=== PATIENT | female | born 1945 | race Caucasian/White ===

== ENCOUNTER 2020-11-20 15:17 | Observation (INO) ==
[2020-11-20] MEDS ORDERED: PANTOPRAZOLE SODIUM 40 MG/100 ML PIGGYBACK IV ONE (15:37)
--- NOTE | 2020-11-20 15:50 | ERNOTE ---
GI Bleeding/Rectal Pain ER Date of Service: 11/20/20 Presenting Symptoms: dark/tarry stools Time Seen by Provider: 11/20/20 15:22 Source: patient Exam Limitations: no limitations Immunizations: IMMUNIZATION HX Immunizations Up to Date Yes Allergies/Adverse Reactions: Allergies atorvastatin [From Lipitor] Allergy (Verified 11/20/20 15:51) codeine Allergy (Verified 11/20/20 15:51) erythromycin base [From Erythrocin] Allergy (Verified 11/20/20 15:51) ezetimibe [From Vytorin] Allergy (Verified 11/20/20 15:51) guaifenesin Allergy (Verified 11/20/20 15:51) levofloxacin [From Levaquin] Allergy (Verified 11/20/20 15:51) lisinopril Allergy (Verified 11/20/20 15:51) simvastatin [From Vytorin] Allergy (Verified 11/20/20 15:51) theophylline Allergy (Verified 11/20/20 15:51) Home Medications: HOME MEDICATIONS ALPRAZolam [Xanax] 0.5 mg PO TID PRN 11/20/20 [Last Taken Unknown] Albuterol Sulfate [Albuterol Sulfate 2.5 MG/0.5ML] 1 vial IH Q6H PRN 11/20/20 [Last Taken Unknown] Albuterol Sulfate [Proventil Hfa] 6.7 gm IH prn PRN 11/20/20 [Last Taken Unknown] Aspirin [Aspirin EC] 325 mg PO DAILY 11/20/20 [Last Taken Unknown] Budesonide/Formoterol Fumarate [Symbicort 160-4.5 Mcg Inhaler] 2 puff IH BID 11/20/20 [Last Taken Unknown] Calcium Carbonate [Elemental Calcium] 600 mg PO DAILY 11/20/20 [Last Taken Unknown] Cholecalciferol (Vitamin D3) [Vitamin D3] 1,000 mcg PO DAILY 11/20/20 [Last Taken Unknown] Docusate Sodium [Colace] 100 mg PO BID PRN 11/20/20 [Last Taken Unknown] Ferrous Sulfate 650 mg PO DAILY 11/20/20 [Last Taken Unknown] Furosemide 20 mg PO DAILY 11/20/20 [Last Taken Unknown] Gabapentin 100 mg PO DAILY 11/20/20 [Last Taken Unknown] Losartan Potassium [Cozaar] 50 mg PO DAILY 11/20/20 [Last Taken Unknown] Metoprolol Tartrate 100 mg PO BID 11/20/20 [Last Taken Unknown] Montelukast Sodium [Singulair] 10 mg PO HS 11/20/20 [Last Taken Unknown] Omeprazole [Prilosec] 20 mg PO DAILY 11/20/20 [Last Taken Unknown] Potassium Chloride 99 mg PO DAILY 11/20/20 [Last Taken Unknown] Pravastatin Sodium 80 mg PO DAILY 11/20/20 [Last Taken Unknown] amLODIPine BESYLATE [Norvasc] 10 mg PO DAILY 11/20/20 [Last Taken Unknown] glipiZIDE [Glipizide] 5 mg PO DAILY 11/20/20 [Last Taken Unknown] metFORMIN HCL [Metformin HCl] 500 mg PO BID 11/20/20 [Last Taken Unknown] traMADol HCL [Ultram] 50 mg PO Q6H PRN 11/20/20 [Last Taken Unknown] Narrative: patient presents to the ED for anemia. She was seen at [facility] today and noted to have symptomatic anemia with HGB just over 5 and sent here. She has been having dark stools since August. Had Colonoscopy set up, could not make that. She had become progressively more SOB, pale and weak. No vomiting. No abdominal pain. Apparently has Hx of blood transfusion in the past. Timing: constant Quality/Severity: Present: severe Nausea/Vomiting: Present: none Abdominal Pain: Present: none Rectal Bleeding: Present: other - black stool Associated Symptoms: Reports: black stools. Denies: dizziness Prior Treament: Reports: recently seen. Denies: recently hospitalized Review of Systems - Review of Systems Constitutional: Absent: fever EYE: Present: no symptoms reported ENT: Absent: sore throat Respiratory: Present: shortness of breath Cardiology: Absent: chest pain Gastrointestinal/Abdominal: Absent: abdominal pain Genitourinary: Absent: dysuria Skin: Present: See HPI Neurological: Absent: headache All Other Systems: All systems neg except as marked Medical History (Last Reviewed 11/20/20 @ 15:48 by Jarad Marcano MD) Adenomatous polyp Allergic rhinitis COPD (chronic obstructive pulmonary disease) Cardiovascular disease Cerebrovascular disease Chronic kidney disease Hypothyroidism Surgical History: Surgical History (Last Updated 11/20/20 @ 15:50 by Renee West RN) History of endarterectomy History of esophagogastroduodenoscopy (EGD) 2016 Hx of colonoscopy 2016 Hx of hysterectomy S/P cystourethroscopy with dilation of urethral stricture Family History: Family History (Last Updated 11/20/20 @ 15:49 by Renee West RN) Other No pertinent family history Social History: (Last Updated 11/20/20 @ 15:52 by Renee West RN) Social History: lives independently: Yes Tobacco: Smoking Status: Former smoker Alcohol: alcohol intake: never Substance Use: substance use type: does not use Physical Exam - Physical Exam General Appearance: Present: alert, no apparent distress Head Exam: Present: normal inspection, no evidence of injury Eye Exam: Normal inspection: bilateral, PERRL: bilateral Ears, Nose, Throat: Present: normal ENT inspection Neck: Present: normal inspection Respiratory: Present: no respiratory distress, lungs clear Cardiovascular/Chest: Present: regular rate, rhythm, normal peripheral pulses Gastrointestinal/Abdominal: Present: normal bowel sounds, nontender, soft Back Exam: Absent: CVA tenderness (R), CVA tenderness (L) Extremity Exam: Present: extremity edema Neurological Exam: Present: alert, no motor/sensory deficits Skin Exam: Present: pallor Progress - Results and Orders Patient's Lab Results:: I have reviewed the patient's lab results. - Vital Signs Patient's Vital Signs:: I have reviewed the patient's vital signs. Vital Signs: Vital Signs 11/20/20 15:20 11/20/20 15:30 Temperature 36.8 C Pulse Rate 98 88 Respiratory Rate 18 Blood Pressure 142/47 O2 Sat by Pulse Oximetry 98 - EKG EKG #1 EKG: NSR EKG read: Interp. by me EKG Comments: NSR with ectopy rate 92. Non-specific ST/T wave changes, no STEMI - X-Ray X-Ray #1 X-Ray: chest Interpretation: Interp. by me X-ray Comments: No real-time radiology reads. I personally reviewed CXR image, no acute process. - Progress/Reassessment Chief Complaint: GI Bleed Progress Note-Subjective: 11/20/20 18:07 Dr Zhao will see the patient. I spoke with Dr De Luna, he andres ladmit the patient. Blood transfusion started. Patient is agreeable. Departure Clinical Impression: GI bleeding, Symptomatic anemia, UTI (urinary tract infection) - Departure Disposition: Still a patient Condition: Fair
[2020-11-20 16:45] LABS: Hematocrit 26.8 % (37.0-47.0); Mean Cell Volume 96.1 fl (78-100); Mean Platelet Volume 10.6 fl (8-12.5); Platelet Count 453 K/mm3 (150-450); Red Blood Count 2.79 M/mm3 (4.2-5.4); Red Cell Distribution Width 17.6 % (11.5-14.0); White Blood Count 12.6 K/mm3 (4.0-10.5)
[2020-11-20 16:51] LABS: Urine Bilirubin Negative (NEGATIVE); Urine Blood Negative /ul (NEGATIVE); Urine Ketone Negative (NEGATIVE); Urine Nitrite Negative (NEGATIVE); Urine Protein 15 mg/dL (NEGATIVE); Urine Specific Gravity 1.015 SP.GR. (1.005-1.010); Urine Urobilinogen Normal (NORMAL); Urine pH 5.5 pH (5.0-7.0)
[2020-11-20 16:57] LABS: Hemoglobin 6.7 gm/dL (12.5-16.0)
[2020-11-20 16:59] LABS: Total Cells Counted 100
[2020-11-20 17:07] LABS: ALT 19 U/L (19-67); AST 13 U/L (0-48); Albumin * 3.2 gm/dl (3.4-5.0); Alkaline Phosphatase * 81 U/L (50-170); Anion Gap 17.9 mmol/L (6.8-13.8); BNP * 1006 pg/mL (5-550); BUN/Creatinine Ratio 19.2 (9.0-21.6); Bilirubin, Total 0.2 mg/dL (0.0-1.1); Blood Urea Nitrogen 29 mg/dL (3-23); Ca. Corrected For Albumin 9.3 mg/dL (8.4-10.2); Carbon Dioxide 22.2 mmol/L (24-32.6); Chloride 102 mmol/L (97-106); Glucose * 108 mg/dL (70-110); Potassium 4.1 mmol/L (3.4-4.6); Sodium 138 mmol/L (132-142); Troponin I Less than 0.017 ng/mL (0.00-0.10)
[2020-11-20 17:15] LABS: Urine Appearance Clear (CLEAR); Urine Bacteria TRACE; Urine Color Pale Yellow; Urine RBC TRACE /hpf (0-5)
[2020-11-20 17:39] LABS: Band 2 % (0-2.0); Basophil 1 % (0-1); Eosinophil 4 % (0-3); Lymphocyte 9 % (20-51); Monocyte 6 % (0-9); Neutrophil 78 % (42-75); Neutrophil # 9.8 K/mm3 (1.3-6.0)
[2020-11-20 17:40] LABS: Prothrombin Time (Patient) 10.6 Seconds (9.1-10.7)
[2020-11-20] MEDS ORDERED: cefTRIAXone SODIUM 1,000 MG/100 ML BAG IV ONE (17:42)
[2020-11-20] MEDS ORDERED: FUROSEMIDE 10 MG/ML VIAL IV ONE (17:42)
[2020-11-20 17:43] LABS: Anisocytosis 2+; Hypochromia 2+; INR 1.02 INR (0.92-1.08); Partial Thrombolplastin Time 23.1 Seconds (24-32); Platelet Estimate Increased (NORMAL); Polychromasia 1+
[2020-11-20] MEDS ORDERED: ALBUTEROL SULFATE 2.5 MG/0.5 ML VIAL.NEB IH PRN (21:34)
--- NOTE | 2020-11-20 22:13 | HP ---
Chief Complaint - Chief Complaint Date of Service: 11/20/20 Time of Service: 22:12 Chief Complaint: Black stools History of Present Illness: Lena is a 75 yo female that presents to the [facility] ER today after instructed by her primary care provider. She reportedly had a hemoglobin of 5 in the clinic. She reports black stools and progressive fatigue for the past month. She reports history of heart burn but she stopped her omeprazole 6 months ago when she felt like her symptoms were gone. She reports that since stopping her omeprazole she had not had any symptoms return. She reports routine scopes in the past but no problems were ever seen. She denies any recent changes in medication or diet. In the ER today her hemoglobin is 6.7. Medical History (Last Reviewed 11/20/20 @ 21:42 by Nunu Gamboa RN) Adenomatous polyp Allergic rhinitis COPD (chronic obstructive pulmonary disease) Cardiovascular disease Cerebrovascular disease Chronic kidney disease Colonic polyp Diabetes mellitus GABRIEL (generalized anxiety disorder) GERD (gastroesophageal reflux disease) H/O coronary angiogram Hypercholesteremia Hypertension Hypothyroidism Iron deficiency anemia Migraines JEREMIAS on CPAP Osteoarthritis PVD (peripheral vascular disease) Sleep related hypoxia Uric acid kidney stone Surgical History: Surgical History (Last Reviewed 11/20/20 @ 21:51 by Nunu Gamboa RN) History of endarterectomy History of esophagogastroduodenoscopy (EGD) 2016 Hx of colonoscopy 2016 Hx of hysterectomy S/P cystourethroscopy with dilation of urethral stricture Family History: Family History (Last Reviewed 11/20/20 @ 21:51 by Nunu Gamboa RN) Other No pertinent family history Social History: (Last Updated 11/20/20 @ 21:52 by Nunu Gamboa RN) Social History: lives independently: Yes Tobacco: Smoking Status: Former smoker tobacco type: cigarettes Smoking End Date: 07/20/20 Smoking End Date comment: stated she stopped 4 months ago Alcohol: alcohol intake: never Substance Use: substance use type: does not use Review Of Systems (GEN) - Review of Systems Generalized/Overall Review: Present: Weakness, Fatigue. Absent: Chills, Fever EENTM: Present: No Symptoms Reported Respiratory: Present: Shortness of Breath. Absent: Cough Cardiac: Absent: Chest Pain, Edema, Palpitations Abdominal: Present: Melena. Absent: Nausea, Vomiting, Hematemesis, Abdominal Pain, Constipation, Diarrhea, Bright blood from rectum Genitourinary: Absent: Burning, Frequency Musculoskeletal: Present: No Symptoms Reported Neurological: Present: Weakness Skin: Present: No Symptoms Reported Immunizations: IMMUNIZATION HX Immunizations Up to Date Yes Allergies/Adverse Reactions: Allergies Allergy/AdvReac Type Severity Reaction Status Date / Time atorvastatin [From Lipitor] Allergy Verified 11/20/20 15:51 codeine Allergy Verified 11/20/20 15:51 erythromycin base Allergy Verified 11/20/20 15:51 [From Erythrocin] ezetimibe [From Vytorin] Allergy Verified 11/20/20 15:51 guaifenesin Allergy Verified 11/20/20 15:51 levofloxacin [From Levaquin] Allergy Verified 11/20/20 15:51 lisinopril Allergy Verified 11/20/20 15:51 simvastatin [From Vytorin] Allergy Verified 11/20/20 15:51 theophylline Allergy Verified 11/20/20 15:51 Home Medications: HOME MEDICATIONS ALPRAZolam [Xanax] 0.5 mg PO TID PRN 11/20/20 [Last Taken Unknown] Albuterol Sulfate [Albuterol Sulfate 2.5 MG/0.5ML] 1 vial IH Q6H PRN 11/20/20 [Last Taken Unknown] Albuterol Sulfate [Proventil Hfa] 6.7 gm IH prn PRN 11/20/20 [Last Taken Unknown] Aspirin [Aspirin EC] 325 mg PO DAILY 11/20/20 [Last Taken Unknown] Budesonide/Formoterol Fumarate [Symbicort 160-4.5 Mcg Inhaler] 2 puff IH BID 11/20/20 [Last Taken Unknown] Calcium Carbonate [Calcium] 600 mg PO DAILY 11/20/20 [Last Taken Unknown] Cholecalciferol (Vitamin D3) [Vitamin D3] 1,000 mcg PO DAILY 11/20/20 [Last Taken Unknown] Docusate Sodium [Colace] 100 mg PO BID PRN 11/20/20 [Last Taken Unknown] Ferrous Sulfate 650 mg PO DAILY 11/20/20 [Last Taken Unknown] Furosemide 20 mg PO DAILY 11/20/20 [Last Taken Unknown] Gabapentin 100 mg PO DAILY 11/20/20 [Last Taken Unknown] Losartan Potassium [Cozaar] 50 mg PO DAILY 11/20/20 [Last Taken Unknown] Metoprolol Tartrate 100 mg PO BID 11/20/20 [Last Taken Unknown] Montelukast Sodium [Singulair] 10 mg PO HS 11/20/20 [Last Taken Unknown] Potassium Chloride 99 mg PO DAILY 11/20/20 [Last Taken Unknown] Pravastatin Sodium 80 mg PO DAILY 11/20/20 [Last Taken Unknown] amLODIPine BESYLATE [Norvasc] 10 mg PO DAILY 11/20/20 [Last Taken Unknown] glipiZIDE [Glipizide] 5 mg PO DAILY 11/20/20 [Last Taken Unknown] metFORMIN HCL [Metformin HCl] 500 mg PO BID 11/20/20 [Last Taken Unknown] traMADol HCL [Ultram] 50 mg PO Q6H PRN 11/20/20 [Last Taken Unknown] Pantoprazole Sodium 40 mg PO DAILY #30 tablet. 11/21/20 [Last Taken Unknown] Exam - Exam Vital Signs: Vital Signs - Last Taken Temp 36.8 C 11/20/20 21:23 Pulse 91 11/20/20 21:23 Resp 22 H 11/20/20 21:23 BP 141/41 11/20/20 21:23 Pulse Ox 91 L 11/20/20 21:23 Constitutional: Present: Alert, Oriented x3, Cooperative ENT Exam: Present: hearing grossly normal Eye Exam: bilateral eye: normal inspection Respiratory: Present: lungs clear, normal breath sounds Cardiovascular/Chest: Present: regular rate, rhythm, no murmur Peripheral Pulses: radial (R): 2+, radial (L): 2+ Abdomen: Present: Normal bowel sounds, soft, nontender, nondistended, no rebound tenderness Skin Exam: Present: normal color, warm/dry, no cyanosis Appearance: Present: appropriate appearance, appropriate insight, neat Eye contact: Present: cooperative, good eye contact, normal speech Thoughts: Present: normal thought pattern, no apparent hallucination Diagnostic Studies: Abnormal Lab Results 11/20/20 11/20/20 11/20/20 Range/Units 16:20 16:20 16:35 WBC 12.6 H (4.0-10.5) K/mm3 RBC 2.79 L (4.2-5.4) M/mm3 Hgb 6.7 L* (12.5-16.0) gm/dL Hct 26.8 L (37.0-47.0) % MCH 24.0 L (27-31) pg MCHC 25.0 L (32-36) g/dl RDW 17.6 H (11.5-14.0) % Plt Count 453 H (150-450) K/mm3 Neutrophils % (Manual) 78 H (42-75) % Lymphocytes % (Manual) 9 L (20-51) % Eosinophils % (Manual) 4 H (0-3) % Neutrophils # (Manual) 9.8 H (1.3-6.0) K/mm3 Lymphocytes # (Manual) 1.1 L (1.5-3.5) k/mm3 Platelet Estimate Increased H (NORMAL) PTT (Nicki) (24-32) Seconds Carbon Dioxide (24-32.6) mmol/L Anion Gap (6.8-13.8) mmol/L BUN (3-23) mg/dL Creatinine (0.4-1.4) mg/dL Est GFR (Non-Af Amer) (60-130) mL/min B-Natriuretic Peptide (5-550) pg/mL Albumin (3.4-5.0) gm/dl Urine Protein 15 H (NEGATIVE) mg/dL Ur Leukocyte Esterase 100 H (NEGATIVE) /ul Urine WBC 5-10 H (0-5) /hpf Stool Occult Blood Positive H Crossmatch 11/20/20 11/20/20 11/20/20 Range/Units 16:35 16:35 16:35 WBC (4.0-10.5) K/mm3 RBC (4.2-5.4) M/mm3 Hgb (12.5-16.0) gm/dL Hct (37.0-47.0) % MCH (27-31) pg MCHC (32-36) g/dl RDW (11.5-14.0) % Plt Count (150-450) K/mm3 Neutrophils % (Manual) (42-75) % Lymphocytes % (Manual) (20-51) % Eosinophils % (Manual) (0-3) % Neutrophils # (Manual) (1.3-6.0) K/mm3 Lymphocytes # (Manual) (1.5-3.5) k/mm3 Platelet Estimate (NORMAL) PTT (Whitman) 23.1 L (24-32) Seconds Carbon Dioxide 22.2 L (24-32.6) mmol/L Anion Gap 17.9 H (6.8-13.8) mmol/L BUN 29 H (3-23) mg/dL Creatinine 1.51 H (0.4-1.4) mg/dL Est GFR (Non-Af Amer) 36 L (60-130) mL/min B-Natriuretic Peptide 1006 H (5-550) pg/mL Albumin 3.2 L (3.4-5.0) gm/dl Urine Protein (NEGATIVE) mg/dL Ur Leukocyte Esterase (NEGATIVE) /ul Urine WBC (0-5) /hpf Stool Occult Blood Crossmatch See Detail Laboratory Results WBC 12.6 K/mm3 (4.0-10.5) H 11/20/20 16:35 RBC 2.79 M/mm3 (4.2-5.4) L 11/20/20 16:35 Hgb 6.7 gm/dL (12.5-16.0) L* 11/20/20 16:35 Hct 26.8 % (37.0-47.0) L 11/20/20 16:35 MCV 96.1 fl (78-100) 11/20/20 16:35 MCH 24.0 pg (27-31) L 11/20/20 16:35 MCHC 25.0 g/dl (32-36) L 11/20/20 16:35 RDW 17.6 % (11.5-14.0) H 11/20/20 16:35 Plt Count 453 K/mm3 (150-450) H 11/20/20 16:35 MPV 10.6 fl (8-12.5) 11/20/20 16:35 Neutrophils % (Manual) 78 % (42-75) H 11/20/20 16:35 Band Neuts % (Manual) 2 % (0-2.0) 11/20/20 16:35 Lymphocytes % (Manual) 9 % (20-51) L 11/20/20 16:35 Monocytes % (Manual) 6 % (0-9) 11/20/20 16:35 Eosinophils % (Manual) 4 % (0-3) H 11/20/20 16:35 Basophils % (Manual) 1 % (0-1) 11/20/20 16:35 Neutrophils # (Manual) 9.8 K/mm3 (1.3-6.0) H 11/20/20 16:35 Lymphocytes # (Manual) 1.1 k/mm3 (1.5-3.5) L 11/20/20 16:35 Monocytes # (Manual) 0.8 k/mm3 (0.0-1.0) 11/20/20 16:35 Eosinophils # (Manual) 0.5 k/mm3 (0.0-0.7) 11/20/20 16:35 Basophils # (Manual) 0.1 k/mm3 (0.0-0.1) 11/20/20 16:35 Platelet Estimate Increased (NORMAL) H 11/20/20 16:35 Polychromasia 1+ 11/20/20 16:35 Hypochromasia 2+ 11/20/20 16:35 Anisocytosis 2+ 11/20/20 16:35 Elliptocytes Trace 11/20/20 16:35 PT 10.6 Seconds (9.1-10.7) 11/20/20 16:35 INR (Anticoag Therapy) 1.02 INR (0.92-1.08) 11/20/20 16:35 PTT (Nicki) 23.1 Seconds (24-32) L 11/20/20 16:35 Sodium 138 mmol/L (132-142) 11/20/20 16:35 Plasma Sodium 138 mmol/L (130-142) 11/20/20 16:35 Potassium 4.1 mmol/L (3.4-4.6) 11/20/20 16:35 Chloride 102 mmol/L (97-106) 11/20/20 16:35 Carbon Dioxide 22.2 mmol/L (24-32.6) L 11/20/20 16:35 Anion Gap 17.9 mmol/L (6.8-13.8) H 11/20/20 16:35 BUN 29 mg/dL (3-23) H 11/20/20 16:35 Creatinine 1.51 mg/dL (0.4-1.4) H 11/20/20 16:35 Est GFR (Non-Af Amer) 36 mL/min (60-130) L 11/20/20 16:35 BUN/Creatinine Ratio 19.2 (9.0-21.6) 11/20/20 16:35 Random Glucose 108 mg/dL (70-110) 11/20/20 16:35 Calcium 9.0 mg/dL (7.9-10.9) 11/20/20 16:35 Calcium Adj for Albumin 9.3 mg/dL (8.4-10.2) 11/20/20 16:35 Total Bilirubin 0.2 mg/dL (0.0-1.1) 11/20/20 16:35 AST 13 U/L (0-48) 11/20/20 16:35 ALT 19 U/L (19-67) 11/20/20 16:35 Alkaline Phosphatase 81 U/L (50-170) 11/20/20 16:35 Troponin I Less than 0.017 ng/mL (0.00-0.10) 11/20/20 16:35 B-Natriuretic Peptide 1006 pg/mL (5-550) H 11/20/20 16:35 Total Protein 7.0 gm/dL (6.2-8.2) 11/20/20 16:35 Albumin 3.2 gm/dl (3.4-5.0) L 11/20/20 16:35 Urine Color Pale yellow 11/20/20 16:20 Urine Appearance Clear (CLEAR) 11/20/20 16:20 Urine pH 5.5 pH (5.0-7.0) 11/20/20 16:20 Ur Specific [place] 1.015 SP.GR. (1.005-1.010) 11/20/20 16:20 Urine Protein 15 mg/dL (NEGATIVE) H 11/20/20 16:20 Urine Glucose (UA) Negative mg/dL (NEGATIVE) 11/20/20 16:20 Urine Ketones Negative mg/dL (NEGATIVE) 11/20/20 16:20 Urine Blood Negative /ul (NEGATIVE) 11/20/20 16:20 Urine Nitrate Negative (NEGATIVE) 11/20/20 16:20 Urine Bilirubin Negative mg/dl (NEGATIVE) 11/20/20 16:20 Urine Urobilinogen Normal EU/dl (NORMAL) 11/20/20 16:20 Ur Leukocyte Esterase 100 /ul (NEGATIVE) H 11/20/20 16:20 Urine RBC Trace /hpf (0-5) 11/20/20 16:20 Urine WBC 5-10 /hpf (0-5) H 11/20/20 16:20 Ur Epithelial Cells 0-5 /hpf (0-5) 11/20/20 16:20 Urine Bacteria Trace (NONE) 11/20/20 16:20 Urine Culture Comments Culture to follow 11/20/20 16:20 Stool Occult Blood Positive H 11/20/20 16:20 SARS-CoV-2 (PCR) Not detected (NotDetected) 11/20/20 15:50 Blood Type A Positive 11/20/20 16:35 Antibody Screen Negative 11/20/20 16:35 Crossmatch See Detail 11/20/20 16:35 Assessment/Plan - Narrative Narrative: Lena is a 75 yo female with upper GI bleed. This has likely been slow and present for the last month. She will be transfused 3 units of pRBCs due to her hemoglobin of 6.7. She will be started on IV protonix 40mg q12. Will monitor her hemoglobin. If it appears stable she may have and EGD as outpatient and if there is evidence of significant acute bleeding she will be scoped as an inpatient. - Assessment/Plan (1) Upper GI bleed Problem: Acute
[2020-11-21] MEDS ORDERED: PANTOPRAZOLE SODIUM 40 MG in NORMAL SALINE 100 ML IV SCH (04:00)
--- NOTE | 2020-11-21 07:49 | CONS ---
[facility] - General Date of Service: 11/20/20 Source: patient, family, RN/MD, RN notes reviewed Exam Limitations: other - We have none of the patient's old records. This is her first visit here - History of Present Illness Timing/Duration: other - She has been having black stools since August. She was seen for a regularly scheduled visit with her PCP today. Hemoglobin was noted to be just above 5. It was recommended she come here for treatment Modifying Factors - (Worsens): Reports: other - Nothing Modifying Factors - (Improves): Reports: other - Nothing Associated Symptoms: other - A little more short of breath. A little more swelling in the legs. Allergies/Adverse Reactions: Allergies atorvastatin [From Lipitor] Allergy (Verified 11/20/20 15:51) codeine Allergy (Verified 11/20/20 15:51) erythromycin base [From Erythrocin] Allergy (Verified 11/20/20 15:51) ezetimibe [From Vytorin] Allergy (Verified 11/20/20 15:51) guaifenesin Allergy (Verified 11/20/20 15:51) levofloxacin [From Levaquin] Allergy (Verified 11/20/20 15:51) lisinopril Allergy (Verified 11/20/20 15:51) simvastatin [From Vytorin] Allergy (Verified 11/20/20 15:51) theophylline Allergy (Verified 11/20/20 15:51) Home Medications: Home Medications Medication Instructions Recorded Last Taken ALPRAZolam [Xanax] 0.5 mg PO TID PRN 11/20/20 Unknown Albuterol Sulfate [Albuterol 1 vial IH Q6H PRN 11/20/20 Unknown Sulfate 2.5 MG/0.5ML] Albuterol Sulfate [Proventil Hfa] 6.7 gm IH prn PRN 11/20/20 Unknown Aspirin [Aspirin EC] 325 mg PO DAILY 11/20/20 Unknown Budesonide/Formoterol Fumarate 2 puff IH BID 11/20/20 Unknown [Symbicort 160-4.5 Mcg Inhaler] Calcium Carbonate [Elemental 600 mg PO DAILY 11/20/20 Unknown Calcium] Cholecalciferol (Vitamin D3) 1,000 mcg PO DAILY 11/20/20 Unknown [Vitamin D3] Docusate Sodium [Colace] 100 mg PO BID PRN 11/20/20 Unknown Ferrous Sulfate 650 mg PO DAILY 11/20/20 Unknown Furosemide 20 mg PO DAILY 11/20/20 Unknown Gabapentin 100 mg PO DAILY 11/20/20 Unknown Losartan Potassium [Cozaar] 50 mg PO DAILY 11/20/20 Unknown Metoprolol Tartrate 100 mg PO BID 11/20/20 Unknown Montelukast Sodium [Singulair] 10 mg PO HS 11/20/20 Unknown Omeprazole [Prilosec] 20 mg PO DAILY 11/20/20 Unknown Potassium Chloride 99 mg PO DAILY 11/20/20 Unknown Pravastatin Sodium 80 mg PO DAILY 11/20/20 Unknown amLODIPine BESYLATE [Norvasc] 10 mg PO DAILY 11/20/20 Unknown glipiZIDE [Glipizide] 5 mg PO DAILY 11/20/20 Unknown metFORMIN HCL [Metformin HCl] 500 mg PO BID 11/20/20 Unknown traMADol HCL [Ultram] 50 mg PO Q6H PRN 11/20/20 Unknown Review of Systems - Review of Systems Generalized/Overall Review: Present: Fatigue. Absent: Chills, Fever EENTM: Present: No Symptoms Reported Respiratory: Present: Other - She has sleep apnea and uses CPAP. She has a little dyspnea on exertion. Absent: Cough, Shortness of Breath Cardiac: Present: Edema. Absent: Chest Pain, Palpitations Abdominal: Present: Other - She denies any heartburn, dysphagia, or odynophagia. Her bowels usually move daily. Her bowel movements have been black and malodorous since August. Genitourinary: Present: Frequency Musculoskeletal: Present: No Symptoms Reported Neurological: Present: No Symptoms Reported Skin: Present: No Symptoms Reported Endocrine: Present: No Symptoms Reported Physical Examination - Exam Narrative: The patient was initially examined while still in the emergency room last night. She is reexamined this morning in her hospital room. Vital Signs: Vital Signs - Last Taken Temp 37.0 C 11/21/20 06:45 Pulse 82 11/21/20 07:17 Resp 18 11/21/20 03:48 BP 170/54 H 11/21/20 06:45 Pulse Ox 91 L 11/21/20 03:48 O2 Oxygen Delivery Method CPAP Comprehensive Narative: 11/21/20 07:42 She states she had a very restless night. She is wearing the CPAP which she takes off for the interview Constitutional: Present: Alert, Oriented x3, Cooperative, Other - A little anxious, Obese ENT Exam: Present: normal ENT inspection, other - Slightly hard of hearing Eye Exam: bilateral eye: normal inspection Neck: Present: full range of motion, normal inspection, other - Short thick neck Breasts: Present: Exam deferred Respiratory: Present: no respiratory distress Cardiovascular/Chest: Present: regular rate, rhythm Abdomen: Present: soft, obese, other - She has tenderness deep in the left flank, almost left kidney area. There is no anterior abdominal tenderness. No rebound. 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, no motor/sensory deficits, normal mood/affect - Little jumpy, oriented x 3 Appearance: Present: appropriate insight, no memory impairment Eye contact: Present: cooperative, good eye contact, normal speech Thoughts: Present: normal thought pattern - Results and Findings: Lab/Microbiology results last 24 hrs: Abnormal/Pending Laboratory Last 24 HRS 11/20/20 11/20/20 11/20/20 16:35 16:35 16:35 WBC RBC Hgb Hct MCH MCHC RDW Plt Count Neutrophils % (Manual) Lymphocytes % (Manual) Eosinophils % (Manual) Neutrophils # (Manual) Lymphocytes # (Manual) Platelet Estimate PTT (Roberts) 23.1 L Carbon Dioxide 22.2 L Anion Gap 17.9 H BUN 29 H Creatinine 1.51 H Est GFR (Non-Af Amer) 36 L B-Natriuretic Peptide 1006 H Albumin 3.2 L Urine Protein Ur Leukocyte Esterase Urine WBC Stool Occult Blood Crossmatch See Detail 11/20/20 11/20/20 11/20/20 16:35 16:20 16:20 WBC 12.6 H RBC 2.79 L Hgb 6.7 L* Hct 26.8 L MCH 24.0 L MCHC 25.0 L RDW 17.6 H Plt Count 453 H Neutrophils % (Manual) 78 H Lymphocytes % (Manual) 9 L Eosinophils % (Manual) 4 H Neutrophils # (Manual) 9.8 H Lymphocytes # (Manual) 1.1 L Platelet Estimate Increased H PTT (Roberts) Carbon Dioxide Anion Gap BUN Creatinine Est GFR (Non-Af Amer) B-Natriuretic Peptide Albumin Urine Protein 15 H Ur Leukocyte Esterase 100 H Urine WBC 5-10 H Stool Occult Blood Positive H Crossmatch A chest x-ray in the emergency room revealed no acute process. She has had 3 units of packed red blood cells transfused overnight. Repeat hemoglobin hematocrit pending - Assessments/Findings (1) GI bleeding Diagnosis(s): The nature of the stools (black tarry) suggests an upper GI source. The patient has had 2 previous colonoscopies done in [place]. She states "they removed polyps". She does not remember anything else she was told about the exams. She does not recognize the term diverticulosis. She is not sure when she was due for another colonoscopy. She had been placed on a PPI after her last episode of anemia, but she stopped that about 6 months ago. She has had an EGD before with one of the colonoscopies. "I was anemic then and had black stools but they never found the source". She was transfused at least once then. Apparently she had been seen about having another colonoscopy but did not follow through with that because she did not want to go to [place]. No mention of planned EGD. A consent for release of information was sent to [place] to obtain records on her previous anemia work-up including scope results. Ideally an EGD should be done initially. Need for colonoscopy would depend on her old records. I discussed the situation with the patient at length--her daughter was also present for the interview. Problem: Acute (2) Symptomatic anemia Diagnosis(s): She has had 3 units of packed red blood cells. She had marked diuresis after a dose of Lasix. Repeat lab pending Problem: Acute (3) UTI (urinary tract infection) Diagnosis(s): She does have some left flank tenderness and the urinalysis may indicate UTI Problem: Acute
[2020-11-21] MEDS ORDERED: ALPRAZolam 0.5 MG TABLET PO PRN (08:56)
[2020-11-21] MEDS ORDERED: amLODIPine BESYLATE 10 MG TABLET PO SCH (09:00)
[2020-11-21] MEDS ORDERED: METOPROLOL TARTRATE 100 MG TABLET PO SCH (09:00)
[2020-11-21] MEDS ORDERED: LOSARTAN POTASSIUM 50 MG TABLET PO SCH (09:00)
[2020-11-21] MEDS ORDERED: FLUTICASONE PROPION/SALMETEROL 14 PUFF DISK.W.DEV IH SCH (09:00)
[2020-11-21 09:53] LABS: Hematocrit 37.6 % (37.0-47.0); Hemoglobin 10.7 gm/dL (12.5-16.0)
[2020-11-21] MEDS: GABAPENTIN 100 MG CAPSULE PO SCH ×2 (10:03→10:05)
--- NOTE | 2020-11-21 15:17 | DS ---
Date of Discharge:: 11/21/20 Hospital Course: Lena is a 75 yo female with black stools and worsening fatigue for the last month. She had been on omeprazole 6 months ago but stopped and had not noticed any symptoms of heartburn or reflux. She was seen in clinic yesterday and her hemoglobin was reportedly in the 5s. She was told to come to the ER. Hemoglobin was repeated and was 6.7. She was admitted to observation and given 3 units of pRBCs and placed on IV protonix. Her hemoglobin was rechecked and was 10.7. She had no significant bright red blood stools. Discussed case with Dr. Zhao who will see her as an outpatient. I will continue you her on PPI. Procedures Performed: none Results and Findings: Pending Mircobiology Results 11/20/20 16:26 Urine,Clean Catch Urine Culture - Preliminary No Growth Lab Pending Results 11/20/20 15:50: SARS-CoV-2 (PCR) Not detected 11/20/20 16:20: Urine Color Pale yellow, Urine Appearance Clear, Urine pH 5.5, Ur Specific [place] 1.015, Urine Protein 15 H, Urine Glucose (UA) Negative, Urine Ketones Negative, Urine Blood Negative, Urine Nitrate Negative, Urine Bilirubin Negative, Urine Urobilinogen Normal, Ur Leukocyte Esterase 100 H, Urine RBC Trace, Urine WBC 5-10 H, Ur Epithelial Cells 0-5, Urine Bacteria Trace, Urine Culture Comments Culture to follow 11/20/20 16:20: Stool Occult Blood Positive H 11/20/20 16:35: WBC 12.6 H, RBC 2.79 L, Hgb 6.7 L*, Hct 26.8 L, MCV 96.1, MCH 24.0 L, MCHC 25.0 L, RDW 17.6 H, Plt Count 453 H, MPV 10.6, Neutrophils % (Manual) 78 H, Band Neuts % (Manual) 2, Lymphocytes % (Manual) 9 L, Monocytes % (Manual) 6, Eosinophils % (Manual) 4 H, Basophils % (Manual) 1, Neutrophils # (Manual) 9.8 H, Lymphocytes # (Manual) 1.1 L, Monocytes # (Manual) 0.8, Eosinophils # (Manual) 0.5, Basophils # (Manual) 0.1, Platelet Estimate Increased H, Polychromasia 1+, Hypochromasia 2+, Anisocytosis 2+, Elliptocytes Trace 11/20/20 16:35: Sodium 138, Plasma Sodium 138, Potassium 4.1, Chloride 102, Carbon Dioxide 22.2 L, Anion Gap 17.9 H, BUN 29 H, Creatinine 1.51 H, Est GFR (Non-Af Amer) 36 L, BUN/Creatinine Ratio 19.2, Random Glucose 108, Calcium 9.0, Calcium Adj for Albumin 9.3, Total Bilirubin 0.2, AST 13, ALT 19, Alkaline Phosphatase 81, Troponin I Less than 0.017, B-Natriuretic Peptide 1006 H, Total Protein 7.0, Albumin 3.2 L 11/20/20 16:35: Blood Type A Positive, Antibody Screen Negative, Crossmatch See Detail 11/20/20 16:35: PT 10.6, INR (Anticoag Therapy) 1.02, PTT (Nicki) 23.1 L 11/21/20 09:47: Hgb 10.7 L, Hct 37.6 Discharge Location: Home Disposition: Home self-care Condition: Good Discharge Activity: Activity as tolerated Discharge Diet: Consistent carbs Referrals: Judi Espinoza APRN [Primary Care Provider] - One Week Serene Zhao MD [Staff Physician] - (next available for EGD (hospitalized for upper GI bleed)) Problem Oriented Discharge Instructions to Patient/Family: Gastrointestinal Bleeding, [id number] Complete Home Medications List: Complete Home Medication List: ALPRAZolam [Xanax] 0.5 mg PO TID PRN 11/20/20 Albuterol Sulfate [Albuterol Sulfate 2.5 MG/0.5ML] 1 vial IH Q6H PRN 11/20/20 Albuterol Sulfate [Proventil Hfa] 6.7 gm IH prn PRN 11/20/20 Aspirin [Aspirin EC] 325 mg PO DAILY 11/20/20 Budesonide/Formoterol Fumarate [Symbicort 160-4.5 Mcg Inhaler] 2 puff IH BID 11/20/20 Calcium Carbonate [Elemental Calcium] 600 mg PO DAILY 11/20/20 Cholecalciferol (Vitamin D3) [Vitamin D3] 1,000 mcg PO DAILY 11/20/20 Docusate Sodium [Colace] 100 mg PO BID PRN 11/20/20 Ferrous Sulfate 650 mg PO DAILY 11/20/20 Furosemide 20 mg PO DAILY 11/20/20 Gabapentin 100 mg PO DAILY 11/20/20 Losartan Potassium [Cozaar] 50 mg PO DAILY 11/20/20 Metoprolol Tartrate 100 mg PO BID 11/20/20 Montelukast Sodium [Singulair] 10 mg PO HS 11/20/20 Omeprazole [Prilosec] 20 mg PO DAILY 11/20/20 Potassium Chloride 99 mg PO DAILY 11/20/20 Pravastatin Sodium 80 mg PO DAILY 11/20/20 amLODIPine BESYLATE [Norvasc] 10 mg PO DAILY 11/20/20 glipiZIDE [Glipizide] 5 mg PO DAILY 11/20/20 metFORMIN HCL [Metformin HCl] 500 mg PO BID 11/20/20 traMADol HCL [Ultram] 50 mg PO Q6H PRN 11/20/20
[2020-11-21 15:41] VITALS: BP 145/49
[2020-11-21] MEDS ORDERED: MONTELUKAST SODIUM 10 MG TABLET PO SCH (21:00)
[2020-11-21] MEDS ORDERED: ROSUVASTATIN CALCIUM 10 MG TABLET PO SCH (21:00)
== END 2020-11-21 15:58 | disposition home or self-care (01) ==
LOC: MS 15:17 → ER 15:17 → MS 18:55
PROVIDERS: ADMIT Family Medicine; ATTEND Family Medicine

== ENCOUNTER 2021-01-13 14:58 | Observation (INO) ==
[2021-01-13 15:26] LABS: Mean Cell Volume 80.4 fl (78-100); Mean Corpuscular Hemoglobin 20.6 pg (27-31); Mean Corpuscular Hgb Conc 25.6 g/dl (32-36); Mean Platelet Volume 10.5 fl (8-12.5); NRBC# 0.2 k/mm3 (0-1); Neutrophil # 4.3 K/mm3 (1.3-6.0); Platelet Count 403 K/mm3 (150-450); Red Blood Count 1.99 M/mm3 (4.2-5.4); Red Cell Distribution Width 19.9 % (11.5-14.0)
[2021-01-13 15:31] LABS: Hemoglobin 4.1 gm/dL (12.5-16.0)
[2021-01-13 15:51] LABS: Troponin I 0.017 ng/mL (0.00-0.10)
[2021-01-13 15:59] LABS: INR 1.06 INR (0.92-1.08); Partial Thrombolplastin Time 17.2 Seconds (24-32)
[2021-01-13 16:03] LABS: Albumin * 3.3 gm/dl (3.4-5.0); Anion Gap 19.2 mmol/L (6.8-13.8); BUN/Creatinine Ratio 17.6 (9.0-21.6); Bilirubin, Total 0.3 mg/dL (0.0-1.1); Ca. Corrected For Albumin 9.6 mg/dL (8.4-10.2); Calcium * 9.4 mg/dL (7.9-10.9); Potassium 4.2 mmol/L (3.4-4.6); Total Protein 6.8 gm/dL (6.2-8.2)
--- NOTE | 2021-01-13 17:07 | ERNOTE ---
GI Bleeding/Rectal Pain ER Date of Service: 01/13/21 Presenting Symptoms: dark/tarry stools, other - Low hemoglobin Time Seen by Provider: 01/13/21 15:06 Source: patient, family, RN notes reviewed, past records Exam Limitations: no limitations Immunizations: IMMUNIZATION HX Immunizations Up to Date Yes Allergies/Adverse Reactions: Allergies erythromycin base [From Erythrocin] Allergy (Verified 12/17/20 08:20) delirium/dizziness theophylline Allergy (Verified 12/17/20 08:20) itching atorvastatin [From Lipitor] Adverse Reaction (Verified 12/17/20 08:20) muscle ache codeine Adverse Reaction (Verified 12/17/20 08:20) lightheaded, nausea, headache ezetimibe [From Vytorin] Adverse Reaction (Verified 12/17/20 08:20) muscle ache guaifenesin Adverse Reaction (Verified 12/17/20 08:20) lightheaded, nausea, headache levofloxacin [From Levaquin] Adverse Reaction (Verified 12/17/20 08:20) altered mental status lisinopril Adverse Reaction (Verified 12/17/20 08:20) cough simvastatin [From Vytorin] Adverse Reaction (Verified 12/17/20 08:20) muscle ache Home Medications: HOME MEDICATIONS ALPRAZolam [Xanax] 0.5 mg PO TID PRN 11/20/20 [Last Taken Unknown] Albuterol Sulfate [Albuterol Sulfate 2.5 MG/0.5ML] 1 vial IH Q6H PRN 11/20/20 [Last Taken Unknown] Albuterol Sulfate [Proventil Hfa] 6.7 gm IH prn PRN 11/20/20 [Last Taken Unknown] Aspirin [Aspirin EC] 325 mg PO DAILY 11/20/20 [Last Taken Unknown] Budesonide/Formoterol Fumarate [Symbicort 160-4.5 Mcg Inhaler] 2 puff IH BID 11/20/20 [Last Taken Unknown] Cholecalciferol (Vitamin D3) [Vitamin D3] 1,000 mcg PO DAILY 11/20/20 [Last Taken Unknown] Docusate Sodium [Colace] 100 mg PO BID PRN 11/20/20 [Last Taken Unknown] Ferrous Sulfate 650 mg PO DAILY 11/20/20 [Last Taken Unknown] Furosemide 20 mg PO DAILY PRN 11/20/20 [Last Taken Unknown] Gabapentin 100 mg PO DAILY 11/20/20 [Last Taken Unknown] Losartan Potassium [Cozaar] 50 mg PO DAILY 11/20/20 [Last Taken 12/15/20] Metoprolol Tartrate 100 mg PO BID 11/20/20 [Last Taken 12/15/20] Montelukast Sodium [Singulair] 10 mg PO HS 11/20/20 [Last Taken Unknown] Pravastatin Sodium 80 mg PO DAILY 11/20/20 [Last Taken Unknown] amLODIPine BESYLATE [Norvasc] 10 mg PO DAILY 11/20/20 [Last Taken 12/15/20] glipiZIDE [Glipizide] 5 mg PO DAILY 11/20/20 [Last Taken Unknown] metFORMIN HCL [Metformin HCl] 500 mg PO BID 11/20/20 [Last Taken Unknown] traMADol HCL [Ultram] 50 mg PO Q6H PRN 11/20/20 [Last Taken Unknown] Pantoprazole Sodium 40 mg PO DAILY #30 tablet. 11/21/20 [Last Taken Unknown] Narrative: Lena is a 75-year-old female brought to the emergency department by family member for a low hemoglobin. She was recently admitted here for GI bleeding. She saw her PCP for recheck today and had a hemoglobin of 3.3. She underwent an EGD and colonoscopy on December 17. Her EGD showed gastritis with bleeding in the stomach. She was started on Protonix and Carafate. She reports that over the past few days she has just gradually gotten more weak and not felt well. She reports having dark-colored stools but states that they have been this way since before her last admission. She denies any nausea or vomiting. She has some occasional left-sided abdominal pain. She has been able to tolerate oral intake. She denies any NSAID or anticoagulant use. She reports having diarrhea and abdominal cramping for a few days since her last hospitalization, but this had resolved. Nausea/Vomiting: Present: none Abdominal Pain: Present: LUQ Rectal Bleeding: Present: none Associated Symptoms: Reports: black stools, tarry stools Prior Treament: Reports: recently seen, treated by physician, recently hospitalized Review of Systems - Review of Systems Constitutional: Present: recent illness, fatigue. Absent: fever, chills EYE: Present: no symptoms reported ENT: Present: no symptoms reported Respiratory: Present: shortness of breath, cough Cardiology: Absent: chest pain, palpitations, syncope Gastrointestinal/Abdominal: Present: abdominal pain. Absent: nausea, vomiting, diarrhea, constipation Genitourinary: Present: decreased urinary output. Absent: dysuria, hematuria Musculoskeletal: Present: no symptoms reported Skin: Present: change in color. Absent: lesions, lumps Neurological: Present: dizziness/light-headedness. Absent: headache Endocrine: Present: no symptoms reported Hematologic/Lymphatic: Absent: easy bruising, easy bleeding Psych: Present: no symptoms reported Medical History (Last Reviewed 01/13/21 @ 17:04 by Ethel Sands NP) Adenomatous polyp Allergic rhinitis COPD (chronic obstructive pulmonary disease) Cardiovascular disease Cerebrovascular disease Chronic kidney disease Colonic polyp Diabetes mellitus GABRIEL (generalized anxiety disorder) GERD (gastroesophageal reflux disease) Hypercholesteremia Hypertension Hypothyroidism Iron deficiency anemia Migraines JEREMIAS on CPAP Osteoarthritis PVD (peripheral vascular disease) Sleep related hypoxia Uric acid kidney stone H/O coronary angiogram Onset Date: Unknown Surgical History: Surgical History (Last Reviewed 01/13/21 @ 17:04 by Ethel Sands NP) History of appendectomy Onset Date: Unknown with hysterectomy History of endarterectomy Onset Date: 06/27/1511/2005, 06/27/15 History of esophagogastroduodenoscopy (EGD) Onset Date: 10/02/15 Dr. Napier: 03/06/15 active bleeding lesion in stomach. 10/02/15-cobblestoning, hiatal hernia. Hx of colonoscopy Onset Date: 10/02/15 Dr. Chowdhury: 11/08/03-2 large polyps, no path report. 10/05/06 tubular adenoma x2. 11/03/[address] Napier: 03/06/15-9 tubular adenomas. 10/02/15-3 hyperplastic polyps, diverticulosis. Hx of hysterectomy Onset Date: Unknown S/P cystourethroscopy with dilation of urethral stricture Onset Date: 05/17/17 left Family History: Family History (Last Reviewed 01/13/21 @ 17:04 by Ethel Sands NP) Father , age 81 CHF (congestive heart failure) CVA (cerebral vascular accident) Mother , age 56-cirrhosis Chronic lung disease Brother , age 76-lung ca Pulmonary embolism Cancer lung ca Brother , age 36-MVA Brother CHF (congestive heart failure) Lymphedema Sister , age 42-MVA Crohn's disease Social History: (Last Reviewed 01/13/21 @ 17:04 by Ethel Sands NP) Social History: Marital status: lives independently: Yes household members: none number of children: 2 current occupational status: retired Tobacco: Smoking Status: Former smoker tobacco type: cigarettes Smoking End Date: 07/20/20 Alcohol: alcohol intake: never Substance Use: substance use type: does not use Dietary Habits: caffeine: Yes Personal Safety: victim of physical abuse: No victim of emotional abuse: No Physical Exam - Physical Exam General Appearance: Present: alert, mild distress, obese Head Exam: Present: normal inspection Eye Exam: Normal inspection: bilateral Neck: Present: normal inspection, nontender, supple Respiratory: Present: no respiratory distress, accessory muscle use - dyspneic on exertion, rhonchi Cardiovascular/Chest: Present: regular rate, rhythm, systolic murmur Gastrointestinal/Abdominal: Present: normal bowel sounds, nondistended, soft, tenderness - LUQ Extremity Exam: Present: normal inspection, non-tender, no edema Neurological Exam: Present: alert, oriented, normal mood/affect, no motor/sensory deficits Skin Exam: Present: warm/dry, pallor - severe Progress - Results and Orders Patient's Lab Results:: I have reviewed the patient's lab results. - Vital Signs Patient's Vital Signs:: I have reviewed the patient's vital signs. Vital Signs: Vital Signs 01/13/21 14:59 01/13/21 15:33 Temperature 36.5 C 36.5 C Pulse Rate 85 85 Respiratory Rate 25 H 25 H Blood Pressure 112/89 112/89 O2 Sat by Pulse Oximetry 95 95 - EKG EKG #1 EKG: NSR EKG read: Reviewed by me - X-Ray X-Ray #1 X-Ray: chest Interpretation: Interp. by me X-ray Comments: No acute findings X-Ray #2 X-Ray: abdomen Interpretation: Interp. by me X-ray Comments: Nonobstructive bowel gas pattern, prominent gastric folds suggestive of ongoing gastritis noted - Progress/Reassessment Chief Complaint: GI Bleed Progress:: Unchanged Plan - Plan Plan: The patient's Hgb is 4.1, her labs are otherwise stable. 2 units of blood have been ordered. Her heart rate has been in the 80's and she has been normotensive. I spoke with Dr. Zhao, he plans to repeat an EGD tomorrow after the patient has been transfused. Dr. Aguila agreed to admit the patient to observation. The patient is in agreement with this and is aware that she will be NPO for the rest of the night. Departure Clinical Impression: Symptomatic anemia, Upper GI bleed - Departure Disposition: Still a patient Condition: Stable Referrals: Judi Espinoza APRN [Primary Care Provider] -
[2021-01-13] MEDS ORDERED: SUCRALFATE 1 G/10 ML UDC PO ONE (18:43)
[2021-01-13] MEDS ORDERED: FUROSEMIDE 10 MG/ML VIAL IV ONE (18:45)
[2021-01-13] MEDS ORDERED: hydrALAZINE HCL 20 MG/ML VIAL IV PRN (18:47)
[2021-01-13] MEDS ORDERED: SUCRALFATE 1 G/10 ML UDC ONE (20:06)
--- NOTE | 2021-01-13 20:33 | ANES ---
Anesthesia Procedure Note Procedure Note: ANESTHESIA PROCEDURE NOTE Date of procedure: 01/13/2021. Time of procedure: 2019. Performed by: Kyrie Fraga CRNA Slip Tender: None . Preprocedure diagnosis: Anemia. GI bleed. Dyspnea. Difficult IV access. Post procedure diagnosis: Same. Procedure: IV start Indications: Difficult IV access. Findings: 20-gauge Angiocath IV was started in patient's left hand. EBL: Minimal. Fluids: N/A. Specimen: N/A. Post procedure condition: The patient tolerated the procedure well. No complications were noted. Thank you for this consultation Kyrie Fraga CRNA
[2021-01-13] MEDS: PANTOPRAZOLE SODIUM 40 MG in NORMAL SALINE 100 ML IV SCH (21:18)
[2021-01-13] MEDS: INSULIN LISPRO 100 UNITS/ML VIAL SC SCH (21:19)
[2021-01-13] MEDS ORDERED: GABAPENTIN 100 MG CAPSULE PO ONE (23:30)
--- NOTE | 2021-01-13 23:54 | HP ---
Chief Complaint - Chief Complaint Date of Service: 01/13/21 Time of Service: 19:00 Chief Complaint: Melenic stools, shortness of breath, fatigue History of Present Illness: 75-year-old female with history of CVD, chronic kidney disease, COPD, diabetes, anxiety, and previous upper GI bleed presented to the hospital for ongoing worsening shortness of breath and fatigue. Patient has been here and been worked up for an upper and lower GI bleed which started last month. Patient was scoped by our general surgeon who found her to have fairly severe gastritis and likely was bleeding from her stomach. She returned to the ER due to worsening s ymptomatic anemia. Hemoglobin is on 4.1. Patient's other labs were fairly unremarkable including her kidney function was at baseline. Patient was fairly comfortable given her blood count. She was admitted for transfusion and ongoing work-up by our general surgeon. Patient's vital signs were stable in the ER and she really had no concerns other than being tired and looking very pale. IV access was difficult, anesthesia was called and to place a line on her which was accomplished prior to her being transferred to the floor. 3 units of blood ordered for transfusion but due to multiple antibodies, we are having to wait to get this blood from other facilities which has been ordered and should be on his way soon. Patient admitted to the floor under observation. Our general surgeon has been notified that she is here. She is n.p.o. at this time and comfortable. Protonix drip ordered as well as Carafate. All other medications are currently being held at this time. CPAP will be ordered for this evening. Medical History (Last Reviewed 01/13/21 @ 20:16 by Vickie Lentz RN) Adenomatous polyp Allergic rhinitis COPD (chronic obstructive pulmonary disease) Cardiovascular disease Cerebrovascular disease Chronic kidney disease Colonic polyp Diabetes mellitus GABRIEL (generalized anxiety disorder) GERD (gastroesophageal reflux disease) Hypercholesteremia Hypertension Hypothyroidism Iron deficiency anemia Migraines JEREMIAS on CPAP Osteoarthritis PVD (peripheral vascular disease) Sleep related hypoxia Uric acid kidney stone H/O coronary angiogram Onset Date: Unknown Surgical History: Surgical History (Last Reviewed 01/13/21 @ 20:16 by Vickie Lentz RN) History of appendectomy Onset Date: Unknown with hysterectomy History of endarterectomy Onset Date: 06/27/1511/2005, 06/27/15 History of esophagogastroduodenoscopy (EGD) Onset Date: 10/02/15 Dr. Napier: 03/06/15 active bleeding lesion in stomach. 10/02/15-cobblestoning, hiatal hernia. Hx of colonoscopy Onset Date: 10/02/15 Dr. Chowdhury: 11/08/03-2 large polyps, no path report. 10/05/06 tubular adenoma x2. 11/03/[address] Napier: 03/06/15-9 tubular adenomas. 10/02/15-3 hyperplastic polyps, diverticulosis. Hx of hysterectomy Onset Date: Unknown S/P cystourethroscopy with dilation of urethral stricture Onset Date: 05/17/17 left Family History: Family History (Last Reviewed 01/13/21 @ 20:16 by Vickie Lentz RN) Father , age 81 CHF (congestive heart failure) CVA (cerebral vascular accident) Mother , age 56-cirrhosis Chronic lung disease Brother , age 76-lung ca Pulmonary embolism Cancer lung ca Brother , age 36-MVA Brother CHF (congestive heart failure) Lymphedema Sister , age 42-MVA Crohn's disease Social History: (Last Reviewed 01/13/21 @ 20:17 by Vickie Lentz RN) Social History: Marital status: lives independently: Yes household members: none number of children: 2 current occupational status: retired Tobacco: Smoking Status: Former smoker tobacco type: cigarettes Smoking End Date: 07/20/20 Alcohol: alcohol intake: never Substance Use: substance use type: does not use Dietary Habits: caffeine: Yes Personal Safety: victim of physical abuse: No victim of emotional abuse: No Review Of Systems (GEN) - Review of Systems Generalized/Overall Review: Present: Weakness, Malaise, Fatigue. Absent: Chills, Fever EENTM: Present: No Symptoms Reported Respiratory: Present: Shortness of Breath. Absent: Cough, Wheezing Cardiac: Absent: Chest Pain, Edema, Palpitations Abdominal: Present: Melena. Absent: Nausea, Vomiting Genitourinary: Present: No Symptoms Reported Musculoskeletal: Present: No Symptoms Reported Neurological: Present: No Symptoms Reported Skin: Present: No Symptoms Reported Endocrine: Present: No Symptoms Reported Immunizations: IMMUNIZATION HX Immunizations Up to Date Yes Allergies/Adverse Reactions: Allergies Allergy/AdvReac Type Severity Reaction Status Date / Time erythromycin base Allergy delirium/di Verified 12/17/20 08:20 [From Erythrocin] zziness theophylline Allergy itching Verified 12/17/20 08:20 atorvastatin [From Lipitor] AdvReac muscle ache Verified 12/17/20 08:20 codeine AdvReac lightheaded, Verified 12/17/20 08:20 nausea, headache ezetimibe [From Vytorin] AdvReac muscle ache Verified 12/17/20 08:20 guaifenesin AdvReac lightheaded, Verified 12/17/20 08:20 nausea, headache levofloxacin [From Levaquin] AdvReac altered Verified 12/17/20 08:20 mental status lisinopril AdvReac cough Verified 12/17/20 08:20 simvastatin [From Vytorin] AdvReac muscle ache Verified 12/17/20 08:20 Home Medications: HOME MEDICATIONS ALPRAZolam [Xanax] 0.5 mg PO TID PRN 11/20/20 [Last Taken Unknown] Albuterol Sulfate [Albuterol Sulfate 2.5 MG/0.5ML] 1 vial IH Q6H PRN 11/20/20 [Last Taken Unknown] Aspirin [Aspirin EC] 325 mg PO DAILY 11/20/20 [Last Taken Unknown] Budesonide/Formoterol Fumarate [Symbicort 160-4.5 Mcg Inhaler] 2 puff IH DAILY 11/20/20 [Last Taken Unknown] Docusate Sodium [Colace] 100 mg PO DAILY PRN 11/20/20 [Last Taken Unknown] Ferrous Sulfate 650 mg PO DAILY 11/20/20 [Last Taken Unknown] Furosemide 20 mg PO DAILY 11/20/20 [Last Taken Unknown] Gabapentin 100 mg PO HS 11/20/20 [Last Taken Unknown] Losartan Potassium [Cozaar] 50 mg PO DAILY 11/20/20 [Last Taken 12/15/20] Montelukast Sodium [Singulair] 10 mg PO HS 11/20/20 [Last Taken Unknown] Pravastatin Sodium 80 mg PO DAILY 11/20/20 [Last Taken Unknown] amLODIPine BESYLATE [Norvasc] 10 mg PO DAILY 11/20/20 [Last Taken 12/15/20] glipiZIDE [Glipizide] 5 mg PO DAILY 11/20/20 [Last Taken Unknown] metFORMIN HCL [Metformin HCl] 500 mg PO BID 11/20/20 [Last Taken Unknown] traMADol HCL [Ultram] 50 mg PO Q6H PRN 11/20/20 [Last Taken Unknown] Albuterol Sulfate [Proair HFA] 2 puff IH Q6H 01/13/21 [Last Taken Unknown] Cholecalciferol (Vitamin D3) [Vitamin D3] 25 mcg PO DAILY 01/13/21 [Last Taken Unknown] Fluticasone Propionate [Flonase] 2 spray NS BID 01/13/21 [Last Taken Unknown] Metoprolol Tartrate 50 mg PO BID 01/13/21 [Last Taken Unknown] Omeprazole [Prilosec] 20 mg PO DAILY 01/13/21 [Last Taken Unknown] Exam - Exam Vital Signs: Vital Signs - Last Taken Temp 37.0 C 01/13/21 23:00 Pulse 89 01/13/21 23:49 Resp 20 01/13/21 23:49 BP 156/63 H 01/13/21 23:00 Pulse Ox 97 01/13/21 23:49 Constitutional: Present: Alert, Oriented x3, Cooperative, Elderly, Obese Eye Exam: bilateral eye: normal inspection, EOMI Neck: Present: non-tender, supple Back Exam: Present: no CVA tenderness Respiratory: Present: lungs clear, normal breath sounds Cardiovascular/Chest: Present: regular rate, rhythm, no murmur Peripheral Pulses: dorsalis-pedis (R): 1+, dorsalis-pedis (L): 1+ Abdomen: Present: soft, nontender, nondistended Extremity: Present: non-tender, slow capillary refill. Absent: lower extremity edema, leg pain Skin Exam: Present: cool/dry, pallor Appearance: Present: appropriate appearance, appropriate insight Eye contact: Present: cooperative, good eye contact Thoughts: Present: normal thought pattern, normal mood /affect Diagnostic Studies: Abnormal Lab Results 01/13/21 01/13/21 01/13/21 Range/Units 15:20 15:20 15:20 RBC 1.99 L (4.2-5.4) M/mm3 Hgb 4.1 L* D (12.5-16.0) gm/dL Hct 16.0 L* D (37.0-47.0) % MCH 20.6 L (27-31) pg MCHC 25.6 L (32-36) g/dl RDW 19.9 H (11.5-14.0) % Immature Gran % (Auto) 1.20 H (0.001-0.429) % Immature Gran # (Auto) 0.07 H (0.000-0.0310) K/mm3 Lymphocytes % 15.9 L (20-51) % Monocytes % 9.2 H (0.0-9) % Lymphocytes # 0.95 L (1.5-3.5) k/mm3 PT 11.0 H (9.1-10.7) Seconds PTT ([place]) 17.2 L (24-32) Seconds Carbon Dioxide 21.0 L (24-32.6) mmol/L Anion Gap 19.2 H (6.8-13.8) mmol/L BUN 26 H (3-23) mg/dL Creatinine 1.48 H (0.4-1.4) mg/dL Est GFR (Non-Af Amer) 37 L (60-130) mL/min B-Natriuretic Peptide (5-550) pg/mL Albumin 3.3 L (3.4-5.0) gm/dl Crossmatch 01/13/21 01/13/21 Range/Units 15:20 15:50 RBC (4.2-5.4) M/mm3 Hgb (12.5-16.0) gm/dL Hct (37.0-47.0) % MCH (27-31) pg MCHC (32-36) g/dl RDW (11.5-14.0) % Immature Gran % (Auto) (0.001-0.429) % Immature Gran # (Auto) (0.000-0.0310) K/mm3 Lymphocytes % (20-51) % Monocytes % (0.0-9) % Lymphocytes # (1.5-3.5) k/mm3 PT (9.1-10.7) Seconds PTT ([place]) (24-32) Seconds Carbon Dioxide (24-32.6) mmol/L Anion Gap (6.8-13.8) mmol/L BUN (3-23) mg/dL Creatinine (0.4-1.4) mg/dL Est GFR (Non-Af Amer) (60-130) mL/min B-Natriuretic Peptide 1851 H (5-550) pg/mL Albumin (3.4-5.0) gm/dl Crossmatch See Detail Laboratory Results WBC 6.0 K/mm3 (4.0-10.5) 01/13/21 15:20 RBC 1.99 M/mm3 (4.2-5.4) L 01/13/21 15:20 Hgb 4.1 gm/dL (12.5-16.0) L* D 01/13/21 15:20 Hct 16.0 % (37.0-47.0) L* D 01/13/21 15:20 MCV 80.4 fl (78-100) 01/13/21 15:20 MCH 20.6 pg (27-31) L 01/13/21 15:20 MCHC 25.6 g/dl (32-36) L 01/13/21 15:20 RDW 19.9 % (11.5-14.0) H 01/13/21 15:20 Plt Count 403 K/mm3 (150-450) 01/13/21 15:20 MPV 10.5 fl (8-12.5) 01/13/21 15:20 Immature Gran % (Auto) 1.20 % (0.001-0.429) H 01/13/21 15:20 Immature Gran # (Auto) 0.07 K/mm3 (0.000-0.0310) H 01/13/21 15:20 Neutrophils % 72.0 % (42-75.0) 01/13/21 15:20 Lymphocytes % 15.9 % (20-51) L 01/13/21 15:20 Monocytes % 9.2 % (0.0-9) H 01/13/21 15:20 Eosinophils % 1.2 % (0.0-3.0) 01/13/21 15:20 Basophils % 0.5 % (0.0-1.0) 01/13/21 15:20 Nucleated RBC % 0.2 k/mm3 (0-1) 01/13/21 15:20 Neutrophils # 4.3 K/mm3 (1.3-6.0) 01/13/21 15:20 Lymphocytes # 0.95 k/mm3 (1.5-3.5) L 01/13/21 15:20 Monocytes # 0.6 k/mm3 (0.0-1.0) 01/13/21 15:20 Eosinophils # 0.1 k/mm3 (0.0-0.7) 01/13/21 15:20 Absolute Basophils 0.0 k/mm3 (0.0-0.1) 01/13/21 15:20 PT 11.0 Seconds (9.1-10.7) H 01/13/21 15:20 INR (Anticoag Therapy) 1.06 INR (0.92-1.08) 01/13/21 15:20 PTT ([place]) 17.2 Seconds (24-32) L 01/13/21 15:20 Sodium 141 mmol/L (132-142) 01/13/21 15:20 Plasma Sodium 141 mmol/L (130-142) 01/13/21 15:20 Potassium 4.2 mmol/L (3.4-4.6) 01/13/21 15:20 Chloride 105 mmol/L (97-106) 01/13/21 15:20 Carbon Dioxide 21.0 mmol/L (24-32.6) L 01/13/21 15:20 Anion Gap 19.2 mmol/L (6.8-13.8) H 01/13/21 15:20 BUN 26 mg/dL (3-23) H 01/13/21 15:20 Creatinine 1.48 mg/dL (0.4-1.4) H 01/13/21 15:20 Est GFR (Non-Af Amer) 37 mL/min (60-130) L 01/13/21 15:20 BUN/Creatinine Ratio 17.6 (9.0-21.6) 01/13/21 15:20 Random Glucose 105 mg/dL (70-110) 01/13/21 15:20 Calcium 9.4 mg/dL (7.9-10.9) 01/13/21 15:20 Calcium Adj for Albumin 9.6 mg/dL (8.4-10.2) 01/13/21 15:20 Total Bilirubin 0.3 mg/dL (0.0-1.1) 01/13/21 15:20 AST 16 U/L (0-48) 01/13/21 15:20 ALT 20 U/L (19-67) 01/13/21 15:20 Alkaline Phosphatase 74 U/L (50-170) 01/13/21 15:20 Troponin I 0.017 ng/mL (0.00-0.10) 01/13/21 15:20 B-Natriuretic Peptide 1851 pg/mL (5-550) H 01/13/21 15:20 Total Protein 6.8 gm/dL (6.2-8.2) 01/13/21 15:20 Albumin 3.3 gm/dl (3.4-5.0) L 01/13/21 15:20 SARS-CoV-2 (PCR) Not detected (NotDetected) 01/13/21 15:26 Blood Type A Positive 01/13/21 15:50 Antibody Screen Positive 01/13/21 15:50 Crossmatch See Detail 01/13/21 15:50 Assessment/Plan - Narrative Narrative: 75-year-old female with history of upper GI bleed admitted for symptomatic anemia. Hemoglobin 4.1. 3 units of been ordered for transfusion but are not in the facility, waiting for the arrival to start. We will repeat hemogram after the third unit goes into hours posttransfusion. Patient will have 25 mg of IV Lasix given after the second unit of blood is given. Patient started on Protonix drip. Carafate ordered. Other medications are currently being held though she did receive a one-time dose of her gabapentin last night to help with her restless leg syndrome. Anxiety appears well controlled, continue IV as needed's if needed but nurse to notify me of this, these will not be ordered at this time. Blood glucose screening will take place a [facility], currently n.p.o. though and so this is on hold for the time being. Sliding scale insulin also will be ordered but again would not be needed until she is back to tolerating p.o. after she is cleared by general surgery. Dr. Zhao of general surgery has been consulted from the ER and will evaluate her. Likely will need another upper endoscopy to evaluate her stomach. Currently she stable her vital signs are stable. IV access was difficult and so IV fluids not be started while getting transfusion as we do not want to fluid overload her and we do not have access for both at this time as do not on a risk of blowing her lines as she has now. Continue with his treatment plan, nurse will call questions or concerns. Will restart home medications when appropriate. 1.5 hours critical care time spent with this patient reviewing her history, working up treatment plan, evaluating the patient, and dictating his note. - Assessment/Plan (1) Obstructive sleep apnea Problem: Acute (2) Chronic kidney disease Problem: Acute (3) Restless leg syndrome Problem: Acute (4) Anxiety Problem: Acute (5) COPD (chronic obstructive pulmonary disease) Problem: Acute (6) Diabetes Problem: Acute (7) Symptomatic anemia Problem: Acute (8) Upper GI bleed Problem: Acute
[2021-01-14] MEDS ORDERED: FUROSEMIDE 10 MG/ML VIAL IV PRN (00:33)
[2021-01-14] MEDS: PANTOPRAZOLE SODIUM 40 MG in NORMAL SALINE 100 ML IV SCH ×2 (02:08→10:00)
--- NOTE | 2021-01-14 09:59 | PN ---
Subjective - Date and Time Seen Date: 01/14/21 Time: 09:55 Subjective Narrative: Patient is resting comfortably in her bed. Vital signs stable no acute events overnight. Patient has been seen by general surgery this morning and plan for upper GI scope later this afternoon. Patient is n.p.o. Patient has no concerns at this time is very pleasant. Patient is just now got her first unit of blood point as it took time to get her blood here due to multiple antibiotics. 2 more units are on their way. Objective - Review of Systems Generalized/Overall Review: Reports: Weakness, Fatigue. Denies: Chills, Fever EENTM: Reports: No Symptoms Reported Respiratory: Reports: Shortness of Breath Cardiac: Reports: No Symptoms Reported Abdominal: Denies: Nausea, Vomiting, Melena Genitourinary Symptoms: Reports: No Symptoms Reported Musculoskeletal Complaints: Reports: No Symptoms Reported Neurological: Reports: No Symptoms Reported Skin: Reports: No Symptoms Reported Endocrine: Reports: No Symptoms Reported - Vitals Vitals: Last Vital Signs Temp 36.7 C 01/14/21 07:05 Pulse 88 01/14/21 07:05 Resp 18 01/14/21 07:05 BP 129/70 01/14/21 07:05 Pulse Ox 93 01/14/21 07:05 - Abnormal Lab Findings Abnormal Lab Findings: Abnormal Lab Results 01/13/21 01/13/21 01/13/21 Range/Units 15:20 15:20 15:20 RBC 1.99 L (4.2-5.4) M/mm3 Hgb 4.1 L* D (12.5-16.0) gm/dL Hct 16.0 L* D (37.0-47.0) % MCH 20.6 L (27-31) pg MCHC 25.6 L (32-36) g/dl RDW 19.9 H (11.5-14.0) % Immature Gran % (Auto) 1.20 H (0.001-0.429) % Immature Gran # (Auto) 0.07 H (0.000-0.0310) K/mm3 Lymphocytes % 15.9 L (20-51) % Monocytes % 9.2 H (0.0-9) % Lymphocytes # 0.95 L (1.5-3.5) k/mm3 PT 11.0 H (9.1-10.7) Seconds PTT ([place]) 17.2 L (24-32) Seconds Carbon Dioxide 21.0 L (24-32.6) mmol/L Anion Gap 19.2 H (6.8-13.8) mmol/L BUN 26 H (3-23) mg/dL Creatinine 1.48 H (0.4-1.4) mg/dL Est GFR (Non-Af Amer) 37 L (60-130) mL/min B-Natriuretic Peptide (5-550) pg/mL Albumin 3.3 L (3.4-5.0) gm/dl Crossmatch 01/13/21 01/13/21 Range/Units 15:20 15:50 RBC (4.2-5.4) M/mm3 Hgb (12.5-16.0) gm/dL Hct (37.0-47.0) % MCH (27-31) pg MCHC (32-36) g/dl RDW (11.5-14.0) % Immature Gran % (Auto) (0.001-0.429) % Immature Gran # (Auto) (0.000-0.0310) K/mm3 Lymphocytes % (20-51) % Monocytes % (0.0-9) % Lymphocytes # (1.5-3.5) k/mm3 PT (9.1-10.7) Seconds PTT ([place]) (24-32) Seconds Carbon Dioxide (24-32.6) mmol/L Anion Gap (6.8-13.8) mmol/L BUN (3-23) mg/dL Creatinine (0.4-1.4) mg/dL Est GFR (Non-Af Amer) (60-130) mL/min B-Natriuretic Peptide 1851 H (5-550) pg/mL Albumin (3.4-5.0) gm/dl Crossmatch See Detail - Exam Constitutional: Present: Alert, Oriented x3, Cooperative, Elderly, Obese ENT Exam: Present: hearing grossly normal Respiratory: Present: lungs clear, normal breath sounds Cardiovascular/Chest: Present: regular rate, rhythm, no murmur Abdomen: Present: soft, nontender, nondistended Extremity: Present: non-tender, no pedal edema Skin Exam: Present: cool/dry, pallor Appearance: Present: appropriate appearance, appropriate insight Eye contact: Present: cooperative, good eye contact Thoughts: Present: normal thought pattern, normal mood /affect Assessment/Plan Plan Narrative: Patient here for upper GI bleed. Awaiting EGD by her general surgeon. Currently being transfused on her first unit, 2 more units in transit. Repeat hemogram 2 hours posttransfusion after the third unit was in. 1 dose IV Lasix to be given after second unit of blood is transfused. Continue n.p.o. Patient on Protonix at this time. Continue Carafate. Other medications are on hold for the time being, will restart them when appropriate. Nurse will call with questions or concerns. Her vital signs are stable and she feels well - Problems/Diagnosis (1) Obstructive sleep apnea Problem: Acute (2) Chronic kidney disease Problem: Acute (3) Restless leg syndrome Problem: Acute (4) Anxiety Problem: Acute (5) COPD (chronic obstructive pulmonary disease) Problem: Acute (6) Diabetes Problem: Acute (7) Symptomatic anemia Problem: Acute (8) Upper GI bleed Problem: Acute
[2021-01-14] MEDS: INSULIN LISPRO 100 UNITS/ML VIAL SC SCH ×4 (10:02→20:30)
[2021-01-14] MEDS: ALBUTEROL SULFATE 2.5 MG/0.5 ML VIAL.NEB IH SCH ×4 (13:25→19:20)
--- NOTE | 2021-01-14 14:15 | CONS ---
HPI - General Date of Service: 01/14/21 Source: patient, RN/, RN notes reviewed, old records Exam Limitations: no limitations - History of Present Illness Initial Comments: She was brought to the ER because a Hemoglobin at her PCP's office was 3.3. Her Hgb here was 4.1 so she was admitted. Earlier this spring, she went to see her usual PCP ALONZO Jolly on 11/20/2020 with complaints of fatigue, leg swelling, and black stools. She was found to have a hemoglobin of slightly greater than 5, and she was referred to our ER for management. She was placed in observation overnight and received 3 units of packed red blood cells her hemoglobin went from 6.7-10.7. I saw the patient in consultation (see note). She complained of black malodorous stools since August. She had never seen arik bright red or maroon blood in her bowel movements. She denied upper GI symptoms. She was discharged home with anticipation of outpatient endoscopy. She was started on Protonix 40 mg p.o. daily. She had an EGD/colonoscopy on 12/14/20 with the finding of old blood in the stomach (without obvious site). There were multiple benign colon polyps but no bleeding site in the colon. She states that her stools have continued to be dark. She is on PPI and does not take NSAIDs. She is on Aspirin 325mg daily and iron. She has had profound anemia before, this occasioned the second colonoscopy in 2015, and she had an EGD as well at that time. She states "they never found a cause for her bleeding". She was placed on a stomach medication which she took for a long time. On her initial interview she thought it was 6 months ago when she stopped it, but in thinking about it, she states she had not been on any stomach medicine for about 2 years prior to her November admission. Timing/Duration: getting worse Modifying Factors - (Worsens): Reports: movement Modifying Factors - (Improves): Reports: rest Associated Symptoms: weakness Allergies/Adverse Reactions: Allergies erythromycin base [From Erythrocin] Allergy (Verified 12/17/20 08:20) delirium/dizziness theophylline Allergy (Verified 12/17/20 08:20) itching atorvastatin [From Lipitor] Adverse Reaction (Verified 12/17/20 08:20) muscle ache codeine Adverse Reaction (Verified 12/17/20 08:20) lightheaded, nausea, headache ezetimibe [From Vytorin] Adverse Reaction (Verified 12/17/20 08:20) muscle ache guaifenesin Adverse Reaction (Verified 12/17/20 08:20) lightheaded, nausea, headache levofloxacin [From Levaquin] Adverse Reaction (Verified 12/17/20 08:20) altered mental status lisinopril Adverse Reaction (Verified 12/17/20 08:20) cough simvastatin [From Vytorin] Adverse Reaction (Verified 12/17/20 08:20) muscle ache Home Medications: Home Medications Medication Instructions Recorded Last Taken ALPRAZolam [Xanax] 0.5 mg PO TID PRN 11/20/20 Unknown Albuterol Sulfate [Albuterol 1 vial IH Q6H PRN 11/20/20 Unknown Sulfate 2.5 MG/0.5ML] Aspirin [Aspirin EC] 325 mg PO DAILY 11/20/20 Unknown Budesonide/Formoterol Fumarate 2 puff IH DAILY 11/20/20 Unknown [Symbicort 160-4.5 Mcg Inhaler] Docusate Sodium [Colace] 100 mg PO DAILY PRN 11/20/20 Unknown Ferrous Sulfate 650 mg PO DAILY 11/20/20 Unknown Furosemide 20 mg PO DAILY 11/20/20 Unknown Gabapentin 100 mg PO HS 11/20/20 Unknown Losartan Potassium [Cozaar] 50 mg PO DAILY 11/20/20 12/15/20 Montelukast Sodium [Singulair] 10 mg PO HS 11/20/20 Unknown Pravastatin Sodium 80 mg PO DAILY 11/20/20 Unknown amLODIPine BESYLATE [Norvasc] 10 mg PO DAILY 11/20/20 12/15/20 glipiZIDE [Glipizide] 5 mg PO DAILY 11/20/20 Unknown metFORMIN HCL [Metformin HCl] 500 mg PO BID 11/20/20 Unknown traMADol HCL [Ultram] 50 mg PO Q6H PRN 11/20/20 Unknown Albuterol Sulfate [Proair HFA] 2 puff IH Q6H 01/13/21 Unknown Cholecalciferol (Vitamin D3) 25 mcg PO DAILY 01/13/21 Unknown [Vitamin D3] Fluticasone Propionate [Flonase] 2 spray NS BID 01/13/21 Unknown Metoprolol Tartrate 50 mg PO BID 01/13/21 Unknown Omeprazole [Prilosec] 20 mg PO DAILY 01/13/21 Unknown Medications - Medications Current Medications: Current Medications Albuterol Sulfate (Albuterol Sulfate 2.5 Mg/0.5 Ml Vial.Neb) 2.5 mg IH Q6HRT [facility] Stop: 02/13/21 10:01 Last Admin: 01/14/21 13:29 Dose: 2.5 mg Documented by: Pantoprazole Sodium 40 mg/ (Sodium Chloride) 100 mls @ 20 mls/hr IV Q5H [facility] Stop: 01/14/21 19:44 Last Admin: 01/14/21 10:00 Dose: 20 mls/hr Documented by: Insulin Human Lispro (Insulin Lispro 100 Units/Ml Vial) 0 units SC [facility]; Protocol Stop: 02/12/21 21:01 Last Admin: 01/14/21 12:28 Dose: Not Given Documented by: Review of Systems - Review of Systems Generalized/Overall Review: Present: Fatigue EENTM: Present: No Symptoms Reported Respiratory: Present: Other - ROJO. Absent: Cough Cardiac: Present: Other - scheduled for echocardiogram tomorrow for increased BNP. Absent: Chest Pain Genitourinary: Present: Nocturia. Absent: Burning Musculoskeletal: Present: No Symptoms Reported Neurological: Present: No Symptoms Reported Skin: Present: Change in Color - pallor Endocrine: Present: No Symptoms Reported Physical Examination - Exam Vital Signs: Vital Signs - Last Taken Temp 36.8 C 01/14/21 11:45 Pulse 85 01/14/21 13:37 Resp 18 01/14/21 13:37 BP 131/73 01/14/21 11:45 Pulse Ox 95 01/14/21 13:29 O2 Oxygen Delivery Method Room Air Constitutional: Present: Alert, Oriented x3, Cooperative, Obese ENT Exam: Present: normal ENT inspection Neck: Present: normal inspection, other - short thick neck Respiratory: Present: crackles Cardiovascular/Chest: Present: regular rate, rhythm Abdomen: Present: obese - denies pain or tenderness /Rectal: Present: Exam deferred Extremity: Present: normal range of motion Skin Exam: Present: pallor Neurologic: Present: under trimmer II-XII nml as tested, no motor/sensory deficits Appearance: Present: appropriate appearance, appropriate insight, neat, no memory impairment Eye contact: Present: cooperative, good eye contact, normal speech Thoughts: Present: normal thought pattern - Results and Findings: Lab/Microbiology results last 24 hrs: Abnormal/Pending Laboratory Last 24 HRS 01/13/21 01/13/21 01/13/21 15:50 15:20 15:20 RBC Hgb Hct MCH MCHC RDW Immature Gran % (Auto) Immature Gran # (Auto) Lymphocytes % Monocytes % Lymphocytes # PT 11.0 H PTT ([place]) 17.2 L Carbon Dioxide Anion Gap BUN Creatinine Est GFR (Non-Af Amer) B-Natriuretic Peptide 1851 H Albumin Crossmatch See Detail 01/13/21 01/13/21 15:20 15:20 RBC 1.99 L Hgb 4.1 L* D Hct 16.0 L* D MCH 20.6 L MCHC 25.6 L RDW 19.9 H Immature Gran % (Auto) 1.20 H Immature Gran # (Auto) 0.07 H Lymphocytes % 15.9 L Monocytes % 9.2 H Lymphocytes # 0.95 L PT PTT ([place]) Carbon Dioxide 21.0 L Anion Gap 19.2 H BUN 26 H Creatinine 1.48 H Est GFR (Non-Af Amer) 37 L B-Natriuretic Peptide Albumin 3.3 L Crossmatch - Assessments/Findings (1) Upper GI bleed Diagnosis(s): Most likely this represents continued bleeding fgrom the [address], given findings on last EGD. Would recommend EGD. Discussed with patient the rationale for exam and the risks and possible complications of the procedure. After an interactive discussion, her questions were answered to her apparent satisfaction and she has given informed consent for EGD. Problem: Acute
--- NOTE | 2021-01-14 14:24 | ANES ---
Anesthesia Pre Procedure Eval Vitals/Labs: Last Vital Signs Temp 36.8 C 01/14/21 11:45 Pulse 85 01/14/21 13:37 Resp 18 01/14/21 13:37 BP 131/73 01/14/21 11:45 Pulse Ox 95 01/14/21 13:29 HOME MEDICATIONS ALPRAZolam [Xanax] 0.5 mg PO TID PRN 11/20/20 [Last Taken Unknown] Albuterol Sulfate [Albuterol Sulfate 2.5 MG/0.5ML] 1 vial IH Q6H PRN 11/20/20 [Last Taken Unknown] Aspirin [Aspirin EC] 325 mg PO DAILY 11/20/20 [Last Taken Unknown] Budesonide/Formoterol Fumarate [Symbicort 160-4.5 Mcg Inhaler] 2 puff IH DAILY 11/20/20 [Last Taken Unknown] Docusate Sodium [Colace] 100 mg PO DAILY PRN 11/20/20 [Last Taken Unknown] Ferrous Sulfate 650 mg PO DAILY 11/20/20 [Last Taken Unknown] Furosemide 20 mg PO DAILY 11/20/20 [Last Taken Unknown] Gabapentin 100 mg PO HS 11/20/20 [Last Taken Unknown] Losartan Potassium [Cozaar] 50 mg PO DAILY 11/20/20 [Last Taken 12/15/20] Montelukast Sodium [Singulair] 10 mg PO HS 11/20/20 [Last Taken Unknown] Pravastatin Sodium 80 mg PO DAILY 11/20/20 [Last Taken Unknown] amLODIPine BESYLATE [Norvasc] 10 mg PO DAILY 11/20/20 [Last Taken 12/15/20] glipiZIDE [Glipizide] 5 mg PO DAILY 11/20/20 [Last Taken Unknown] metFORMIN HCL [Metformin HCl] 500 mg PO BID 11/20/20 [Last Taken Unknown] traMADol HCL [Ultram] 50 mg PO Q6H PRN 11/20/20 [Last Taken Unknown] Albuterol Sulfate [Proair HFA] 2 puff IH Q6H 01/13/21 [Last Taken Unknown] Cholecalciferol (Vitamin D3) [Vitamin D3] 25 mcg PO DAILY 01/13/21 [Last Taken Unknown] Fluticasone Propionate [Flonase] 2 spray NS BID 01/13/21 [Last Taken Unknown] Metoprolol Tartrate 50 mg PO BID 01/13/21 [Last Taken Unknown] Omeprazole [Prilosec] 20 mg PO DAILY 01/13/21 [Last Taken Unknown] Allergies/Adverse Reactions: Allergies Allergy/AdvReac Type Severity Reaction Status Date / Time erythromycin base Allergy delirium/di Verified 12/17/20 08:20 [From Erythrocin] zziness theophylline Allergy itching Verified 12/17/20 08:20 atorvastatin [From Lipitor] AdvReac muscle ache Verified 12/17/20 08:20 codeine AdvReac lightheaded, Verified 12/17/20 08:20 nausea, headache ezetimibe [From Vytorin] AdvReac muscle ache Verified 12/17/20 08:20 guaifenesin AdvReac lightheaded, Verified 12/17/20 08:20 nausea, headache levofloxacin [From Levaquin] AdvReac altered Verified 12/17/20 08:20 mental status lisinopril AdvReac cough Verified 12/17/20 08:20 simvastatin [From Vytorin] AdvReac muscle ache Verified 12/17/20 08:20 - Planned Procedure Planned Procedure: Upper GI bleed, symptomatic anemia Medication List Reviewed:: Yes Allergies Verified: Yes Medical History (Last Reviewed 01/14/21 @ 14:23 by Daryn Dukes CRNA) Adenomatous polyp Allergic rhinitis COPD (chronic obstructive pulmonary disease) Cardiovascular disease Cerebrovascular disease Chronic kidney disease Colonic polyp Diabetes mellitus GABRIEL (generalized anxiety disorder) GERD (gastroesophageal reflux disease) Hypercholesteremia Hypertension Hypothyroidism Iron deficiency anemia Migraines JEREMIAS on CPAP Osteoarthritis PVD (peripheral vascular disease) Sleep related hypoxia Uric acid kidney stone H/O coronary angiogram Onset Date: Unknown Surgical History (Last Reviewed 01/14/21 @ 14:23 by Daryn Dukes CRNA) History of appendectomy Onset Date: Unknown with hysterectomy History of endarterectomy Onset Date: 06/27/1511/2005, 06/27/15 History of esophagogastroduodenoscopy (EGD) Onset Date: 10/02/15 Dr. Napier: 03/06/15 active bleeding lesion in stomach. 10/02/15-cobblestoning, hiatal hernia. Hx of colonoscopy Onset Date: 10/02/15 Dr. Chowdhury: 11/08/03-2 large polyps, no path report. 10/05/06 tubular adenoma x2. 11/03/[address] Napier: 03/06/15-9 tubular adenomas. 10/02/15-3 hyperplastic polyps, diverticulosis. Hx of hysterectomy Onset Date: Unknown S/P cystourethroscopy with dilation of urethral stricture Onset Date: 05/17/17 left Family History (Last Reviewed 01/14/21 @ 14:23 by Daryn Dukes CRNA) Father , age 81 CHF (congestive heart failure) CVA (cerebral vascular accident) Mother , age 56-cirrhosis Chronic lung disease Brother , age 76-lung ca Pulmonary embolism Cancer lung ca Brother , age 36-MVA Brother CHF (congestive heart failure) Lymphedema Sister , age 42-MVA Crohn's disease - Family Anesthesia History Family History:: no untoward family reactions to anesthesia, no familial bleeding tendencies, no family history of clotting disorders, no family history of premature - Airway/Neck/Teeth Within Normal Limits:: Yes Thyromental (T-M) distance: > 6 cm Mandibulo Hyoid distance: > 3 cm - Respiratory Respiratory Physical: decreased breath sounds Sleep Apnea currently treated: Yes - Cardiovascular Tolerate Activity: Poor Heart Sounds: S1 & S2, Regular - Gastrointestinal NPO since: mn - Anesthesia Assessment and Plan ASA Class: PS, III, E Anesthesia Type Plan: MAC
[2021-01-14] MEDS ORDERED: LIDOCAINE HCL 20 ML VIAL ONE (14:30)
[2021-01-14] MEDS ORDERED: PROPOFOL VIAL IV ONE (14:30)
[2021-01-14] MEDS ORDERED: RINGER'S SOLUTION,LACTATED 1,000 ML IV PRN (15:03)
--- NOTE | 2021-01-14 15:28 | ANES ---
Post Anesthesia Discharge - Transfer of Care Transfer of Care handoff given to nurse: Yes - Discharge from PACU Discharge from PACU when meets criteria: Yes - Discharge to ASU Discharge to ASU-no complications/pt stable: Yes
--- NOTE | 2021-01-14 15:28 | ANES ---
Post Anesthesia Assessment - Vital Signs Vitals: Last Vital Signs Temp 36.7 C 01/14/21 14:20 Pulse 92 01/14/21 14:20 Resp 22 H 01/14/21 14:20 BP 148/75 01/14/21 14:20 Pulse Ox 94 01/14/21 14:20 Airway Patency: Normal - Mental Status Level Of Consciousness: Awake - Pain Level Pain Score: 0 - N/V Assessment Nausea/Vomiting Presence: None Dehydration:: No
--- NOTE | 2021-01-14 16:47 | OR ---
Operative Report - Dictated Report Narrative: Operative Report Date of operation: 01/14/2021 Preoperative diagnosis: GI bleeding. Anemia Postoperative diagnosis: Mild gastropathy. No active bleeding Operation: EGD Surgeon: Dr Zhao Anesthesia: GANESH Dukes CRNA Indications for procedure: The patient is a 75-year-old female who admitted through the emergency room with profound anemia. She had a similar episode at the first part of November. She was transfused and underwent outpatient EGD/colonoscopy on 12/14/2020. She was found to have old blood in the stomach. There were multiple benign colon polyps but no active colonic bleeding source. She has continued to have dark stools. She is on a regular aspirin and iron. Findings: Relatively normal EGD with exception of several small petechial areas in the stomach. No active bleeding sites out to the third portion of the duodenum Narrative of procedure: The patient was identified preoperatively, and prior to the administration of anesthetic a multidisciplinary timeout was observed With the patient in the recumbent position, a bite-block was placed, intravenous sedation administered, and the patient's eyes covered with a towel. The flexible fiberoptic gastroscope was advanced into the posterior pharynx which appeared normal. The supraglottic larynx appeared normal. There was no evidence of blood coming from the nasopharynx. The cords appeared normal, moved well, and opposed in the midline. The scope was advanced under direct vision into the proximal esophagus which appeared normal. The esophagus appeared freely distensible with normal mucosa. There were no esophageal varices the esophageal mucosa appeared normal down to the gastroesophageal junction which was sharp and noninflamed. The GE junction appeared normally distensible. The scope was advanced into the stomach which was insufflated with air. The stomach was empty. The gastric mucosa appeared grossly normal with only scattered small petechial areas of irritation. There were no active ulcers or neoplastic lesions including a retroflexed view of the gastric fundus which demonstrated a normal gastric side of the GE junction. The pylorus appeared patent. The scope was advanced into the duodenal bulb which appeared normal. The scope was advanced further to the horizontal portion of the duodenum which appeared normal, specifically the villous architecture appeared well preserved and clear bile was present. The scope was slowly withdrawn through the duodenal bulb with confirmation that no active ulcer was present. The scope was withdrawn to the stomach which was briefly and reinspected with confirmation of previous findings. The insufflated air was removed from the stomach, the scope withdrawn to the GE junction which was photographed. The scope was withdrawn from the patient, and the procedure terminated. The patient tolerated the anesthetic and procedure well without complication and was transferred back to her room area awake and in stable condition. I shared the operative findings with the patient and her son. They were given c opies of the photographs which appear in the medical record. RECOMMENDATION: She should be continued on a proton pump inhibitor. It would be safe to start the patient on clear liquids tonight. Transfusion has been ordered. Will discuss the case with Dr. Aguila. Will inquire if she can be off aspirin and iron (receive IV iron). With a recent colonoscopy negative for bleeding site, consideration could be given to PillCam and possibly bone marrow biopsy. Reviewed and electronically signed
[2021-01-14] MEDS: FLUTICASONE PROPIONATE 120 SPRAY INHALER NS SCH (20:27)
[2021-01-14] MEDS ORDERED: GABAPENTIN 100 MG CAPSULE PO SCH (21:00)
[2021-01-14 21:25] LABS: Hematocrit 30.4 % (37.0-47.0); Hemoglobin 9.2 gm/dL (12.5-16.0); Mean Cell Volume 83.3 fl (78-100); Mean Corpuscular Hemoglobin 25.2 pg (27-31); Mean Corpuscular Hgb Conc 30.3 g/dl (32-36); Mean Platelet Volume 9.5 fl (8-12.5); Platelet Count 282 K/mm3 (150-450); Red Blood Count 3.65 M/mm3 (4.2-5.4); Red Cell Distribution Width 16.6 % (11.5-14.0); White Blood Count 7.2 K/mm3 (4.0-10.5)
[2021-01-15] MEDS: PANTOPRAZOLE SODIUM 40 MG in NORMAL SALINE 100 ML IV SCH ×2 (00:06→05:49)
[2021-01-15] MEDS: ALBUTEROL SULFATE 2.5 MG/0.5 ML VIAL.NEB IH SCH ×3 (00:10→13:20)
[2021-01-15 06:47] LABS: Hematocrit 32.8 % (37.0-47.0); Hemoglobin 9.6 gm/dL (12.5-16.0); Mean Cell Volume 84.8 fl (78-100); Mean Corpuscular Hemoglobin 24.8 pg (27-31); Mean Corpuscular Hgb Conc 29.3 g/dl (32-36); Mean Platelet Volume 9.8 fl (8-12.5); NRBC# 0.1 k/mm3 (0-1); Neutrophil # 5.1 K/mm3 (1.3-6.0); Neutrophil % 72.8 % (42-75.0); Platelet Count 282 K/mm3 (150-450); Red Blood Count 3.87 M/mm3 (4.2-5.4); Red Cell Distribution Width 17.2 % (11.5-14.0)
[2021-01-15 06:55] LABS: Anion Gap 14.7 mmol/L (6.8-13.8); BUN/Creatinine Ratio 12.9 (9.0-21.6); Calcium * 9.1 mg/dL (7.9-10.9); Carbon Dioxide 22.9 mmol/L (24-32.6); Estimated Creat Clear 27.1; Potassium 3.6 mmol/L (3.4-4.6)
[2021-01-15] MEDS: INSULIN LISPRO 100 UNITS/ML VIAL SC SCH ×2 (07:17→12:09)
[2021-01-15] MEDS: FLUTICASONE PROPIONATE 120 SPRAY INHALER NS SCH (09:43)
--- NOTE | 2021-01-15 11:46 | PN ---
Dictated Progress Note - Date and Time Seen: Date: 01/15/21 - Progress Note Narrative: Vital Signs - Last Taken Temp 36.8 C 01/15/21 09:48 Pulse 78 01/15/21 09:48 Resp 18 01/15/21 09:48 BP 143/79 01/15/21 09:48 Pulse Ox 93 01/15/21 09:48 Abnormal/Pending Laboratory Last 24 HRS 01/15/21 01/15/21 01/14/21 06:30 06:30 21:15 RBC 3.87 L 3.65 L Hgb 9.6 L 9.2 L Hct 32.8 L 30.4 L MCH 24.8 L 25.2 L MCHC 29.3 L 30.3 L RDW 17.2 H 16.6 H Immature Gran % (Auto) 1.30 H Immature Gran # (Auto) 0.09 H Lymphocytes % 13.3 L Basophils % 1.3 H Lymphocytes # 0.93 L Carbon Dioxide 22.9 L Anion Gap 14.7 H Est GFR (Non-Af Amer) 48 L D Random Glucose 117 H Crossmatch 01/13/21 15:50 RBC Hgb Hct MCH MCHC RDW Immature Gran % (Auto) Immature Gran # (Auto) Lymphocytes % Basophils % Lymphocytes # Carbon Dioxide Anion Gap Est GFR (Non-Af Amer) Random Glucose Crossmatch See Detail Her hemoglobin has risen from 4.1-9.6 with 3 units transfusion. Her vital signs have remained normal. There has been no evidence of GI bleeding. Her scope yesterday showed only small petechial areas in the stomach, but no active bleeding. Review of her records from [facility]; 2003 colonoscopy 2 large polyps--- no path report 2006 colonoscopy 2 tubular adenomas 2009 colonoscopy 2 normal tissue biopsies 2014 EGD/colonoscopy colonoscopy done for active bleeding She had an active bleeding gastric lesion that was cauterized. She had 9 tubular adenomas removed EGD/colonoscopy 12/14/2020 She had old blood in the stomach indicating that that was probably the source, but no gross bleeding lesion was seen. 5 tubular adenomas and diverticulosis on colonoscopy Impression: Given her history and the findings on EGD on 12/14/2020, her bleeding is most likely from the stomach. Recommendation: Would avoid oral iron (consider IV), and if possible stop the regular aspirin or decrease the dose. Continue on daily PPI with Carafate for the time being If the patient should rebleed, again suggest nuclear medicine bleeding scan or timely EGD--- if the bleeding is not diverticular. PillCam study could be considered She should have another colonoscopy in 3 years given her polyp history. Discussed with Dr. De Luna who is covering for Dr. Aguila Reviewed and electronically signed
--- NOTE | 2021-01-15 12:53 | DS ---
(1) Upper GI bleed Problem: Acute Date of Discharge:: 01/15/21 Hospital Course: Lena is a 75 yo female admitted for hemoglobin of 4. She underwent endoscopy and there was no evidence of active bleeding. She was transfused to a hemoglobin of 9.2 with 3 units of blood. Her hemoglobin was rechecked the following day and was up to 9.6. She is doing well and having no evidence of active bleeding. She will be discharged to home. Surgery recommends repeat colonoscopy for polyps in 3 years. She is on oral iron which can cause gastritis, she should consider IV iron infusion instead of oral to prevent this from being a cause for her GI bleeds. She is also on aspirin and I recommended s he at least be on enteric coated aspirin if she can't lower her dose or stop this. She should also continue her PPI. Procedures Performed: see notes below List Procedures: EGD 01/14/21 Results and Findings: Lab Pending Results 01/13/21 15:20: WBC 6.0, RBC 1.99 L, Hgb 4.1 L* D, Hct 16.0 L* D, MCV 80.4, MCH 20.6 L, MCHC 25.6 L, RDW 19.9 H, Plt Count 403, MPV 10.5, Immature Gran % (Auto) 1.20 H, Immature Gran # (Auto) 0.07 H, Neutrophils % 72.0, Lymphocytes % 15.9 L, Monocytes % 9.2 H, Eosinophils % 1.2, Basophils % 0.5, Nucleated RBC % 0.2, Neutrophils # 4.3, Lymphocytes # 0.95 L, Monocytes # 0.6, Eosinophils # 0.1, Absolute Basophils 0.0 01/13/21 15:20: Sodium 141, Plasma Sodium 141, Potassium 4.2, Chloride 105, Carbon Dioxide 21.0 L, Anion Gap 19.2 H, BUN 26 H, Creatinine 1.48 H, Est GFR (Non-Af Amer) 37 L, BUN/Creatinine Ratio 17.6, Random Glucose 105, Calcium 9.4, Calcium Adj for Albumin 9.6, Total Bilirubin 0.3, AST 16, ALT 20, Alkaline Phosphatase 74, Troponin I 0.017, Total Protein 6.8, Albumin 3.3 L 01/13/21 15:20: PT 11.0 H, INR (Anticoag Therapy) 1.06, PTT ([place]) 17.2 L 01/13/21 15:20: B-Natriuretic Peptide 1851 H 01/13/21 15:26: SARS-CoV-2 (PCR) Not detected 01/13/21 15:50: Blood Type A Positive, Antibody Screen Positive, Antibody Identification Warm Auto Antibody, Crossmatch See Detail 01/14/21 21:15: WBC 7.2, RBC 3.65 L, Hgb 9.2 L, Hct 30.4 L, MCV 83.3, MCH 25.2 L, MCHC 30.3 L, RDW 16.6 H, Plt Count 282, MPV 9.5 01/15/21 06:30: WBC 7.0, RBC 3.87 L, Hgb 9.6 L, Hct 32.8 L, MCV 84.8, MCH 24.8 L, MCHC 29.3 L, RDW 17.2 H, Plt Count 282, MPV 9.8, Immature Gran % (Auto) 1.30 H, Immature Gran # (Auto) 0.09 H, Neutrophils % 72.8, Lymphocytes % 13.3 L, Monocytes % 8.6, Eosinophils % 2.7, Basophils % 1.3 H, Nucleated RBC % 0.1, Neutrophils # 5.1, Lymphocytes # 0.93 L, Monocytes # 0.6, Eosinophils # 0.2, Absolute Basophils 0.1 01/15/21 06:30: Sodium 139, Plasma Sodium 139, Potassium 3.6, Chloride 105, Carbon Dioxide 22.9 L, Anion Gap 14.7 H, BUN 15, Creatinine 1.16, Est GFR (Non- Af Amer) 48 L D, BUN/Creatinine Ratio 12.9, Random Glucose 117 H, Calcium 9.1 Discharge Location: Home Disposition: Home self-care Condition: Stable Discharge Activity: Activity as tolerated Discharge Diet: General/regular food Referrals: Judi Espinoza APRN [Primary Care Provider] - One Week Problem Oriented Discharge Instructions to Patient/Family: Gastrointestinal Bleeding, [id number] Complete Home Medications List: Complete Home Medication List: ALPRAZolam [Xanax] 0.5 mg PO TID PRN 11/20/20 Albuterol Sulfate [Albuterol Sulfate 2.5 MG/0.5ML] 1 vial IH Q6H PRN 11/20/20 Aspirin [Aspirin EC] 325 mg PO DAILY 11/20/20 Budesonide/Formoterol Fumarate [Symbicort 160-4.5 Mcg Inhaler] 2 puff IH DAILY 11/20/20 Docusate Sodium [Colace] 100 mg PO DAILY PRN 11/20/20 Furosemide 20 mg PO DAILY 11/20/20 Gabapentin 100 mg PO HS 11/20/20 Losartan Potassium [Cozaar] 50 mg PO DAILY 11/20/20 Montelukast Sodium [Singulair] 10 mg PO HS 11/20/20 Pravastatin Sodium 80 mg PO DAILY 11/20/20 amLODIPine BESYLATE [Norvasc] 10 mg PO DAILY 11/20/20 glipiZIDE [Glipizide] 5 mg PO DAILY 11/20/20 metFORMIN HCL [Metformin HCl] 500 mg PO BID 11/20/20 traMADol HCL [Ultram] 50 mg PO Q6H PRN 11/20/20 Albuterol Sulfate [Proair HFA] 2 puff IH Q6H 01/13/21 Cholecalciferol (Vitamin D3) [Vitamin D3] 25 mcg PO DAILY 01/13/21 Fluticasone Propionate [Flonase] 2 spray NS BID 01/13/21 Metoprolol Tartrate 50 mg PO BID 01/13/21 Omeprazole [Prilosec] 20 mg PO DAILY 01/13/21 Forms: Patient Portal Registration
[2021-01-15 16:36] VITALS: BP 103/48
== END 2021-01-15 16:10 | disposition home or self-care (01) ==
LOC: ER 14:58 → MS 14:58
PROVIDERS: ADMIT Family Medicine; ATTEND Family Medicine